=== PATIENT | female | born 1965 | race Caucasian/White ===

== ENCOUNTER 2016-12-07 08:38 | Emergency (ER) | payer OTHER, MEDICAID ==
[~2016-12-07 08:38] MED LIST: ALBU17IN INH; ASPI1TAB PO; BISO5TAB5 PO; CIPR-250 PO; CYCL10TA PO; DITR1TAB PO; LISI10TA4 PO; MAGN400C2 PO; MELO7.5T6 PO; PAXI30TA11 PO; PRAM0.5T4 PO; ROBA750T4 PO; VALI5TAB PO; VICO5TAB16 PO; VITA50003 PO; [UNRECOGNIZED DRUG - REMARK] PO; flexeril PO
[2016-12-07] MEDS ORDERED: PERCOCET 5MG/325MG TAB As Ordered ONE (09:07)
[2016-12-07] MEDS ORDERED: ADACEL/BOOSTRIX VACCINE (DIPHTH/PERTUSS/ACELL/TETANUS)0.5ML SYR (90715) As Ordered ONE (09:08)
--- NOTE | 2016-12-07 09:16 | REP ---
Clinical: Trauma. Comparison: 06/23/2015 . Findings: Age-related atrophy and microvascular ischemic changes are appreciated. The ventricles and sulci are symmetric. Hanks-white differentiation is maintained. There is no evidence for acute intracranial hemorrhage, mass/mass effect, pathology or infarction. No extra-axial fluid collection. Calvarium is intact. Paranasal sinuses and mastoid air cells are clear. There is a moderate left posterior scalp hematoma/contusion. Impression: Left posterior occipital scalp contusion/hematoma. Age related atrophy and microvascular ischemic changes. No acute intracranial hemorrhage, infarction, or mass/mass effect. Signed by Ramsey Marquez MD 12/07/2016 09:08 A
--- NOTE | 2016-12-07 09:36 | REP ---
Clinical: Trauma . Technique: Internal rotation, external rotation, and Y view left shoulder. Findings: Age-related degenerative changes are appreciated including cortical irregularity and subtle spurring involving the acromioclavicular joint as well as the glenohumeral joint with subtle decrease subacromial space. No acute fracture or dislocation. Surrounding soft tissues are unremarkable and no periarticular calcifications are identified. Impression: Normal age-appropriate left shoulder radiographs. Signed by Ramsey Marquez MD 12/07/2016 09:28 A
--- NOTE | 2016-12-07 09:37 | REP ---
Clinical: Trauma. Technique: AP and lateral views of the right humerus. Findings: There is a transverse fracture through the mid the humeral shaft approximately 7 mm of displacement. No subcutaneous emphysema is appreciated. Impression: Closed transverse fracture of the mid humeral shaft. Signed by Ramsey Marquez MD 12/07/2016 09:29 A
--- NOTE | 2016-12-07 09:42 | REP ---
Clinical: Trauma . Technique: AP, lateral, bilateral oblique views of the right elbow. Findings: No acute fracture or dislocation is appreciated. Joint spaces and surrounding soft tissues appear normal. Lateral view demonstrates normal positioning to the anterior and posterior fat pads without evidence for effusion/hemarthrosis. No subcutaneous emphysema or foreign body identified. Impression: Normal right elbow radiographs. Signed by Ramsey Marquez MD 12/07/2016 09:33 A
--- NOTE | 2016-12-07 13:23 | EDDOCDS ---
Nurse's Notes [facility] Name: Alexsandra Farrell Age: 51 yrs Sex: Female : 1965 Arrival Date: 12/07/2016 Time: 08:38 Bed TR7 Private MD: Katerina Mcgee M Diagnosis: Fall (on) (from) other stairs and steps;Contusion of right elbow;Contusion of left shoulder Presentation: 12/07 08:41 Presenting complaint: Patient states: fell down 10 steps after she felt weak and her mk4 legs got woobly and struck back of head on wall. Adult Sepsis Screening: The patient does not have new or worsening altered mentation. Patient's respiratory rate is less than 22. Systolic blood pressure is greater than 100. Patient has a qSOFA score of 0- Negative Sepsis Screen. Suicide/Homicide risk assessment- the patient denies having any suicidal and/or homicidal ideations and does not present with any other emotional, behavioral or mental health complaints. 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 Transition of care: patient was not received from another setting of care. 08:41 Acuity: UZAIR Level 3 mk4 08:41 Method Of Arrival: Ambulance 4 Triage Assessment: 08:50 General: Appears uncomfortable. Pain: Location: posterior aspect of left shoulder. HIV mk4 screening NA for this visit Offered previously. 08:53 Musculoskeletal: Swelling bruising posterior lefr shoulder. 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 albuterol sulfate 90 mcg/actuation Inhl HFAA 1 puff twice a day 2. aspirin 81 mg Oral TbEC 1 tab once daily (Last dose: 12/06/2016) 3. lisinopril 10 mg Oral tab 1 tab once daily 4. magnesium oxide 400 mg Oral tab 400 mg twice a day 5. paroxetine HCl 40 mg Oral tab 1 tab once daily 6. potassium chloride 10 mEq Oral TbER 1 tab once daily (Last dose: 12/06/2016) 7. Trazodone 25 mg Oral 1 tab nightly 8. pramipexole 0.5 mg oral tab 1 tab nightly (Last dose: 12/06/2016) 9. Vitamin B-6 100 mg Oral tab 200 mg every other day 10. aanother b/p med 11. bisoprolol fumarate 5 mg oral tab once daily 12. 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 No barriers to communication noted. - Family history: Not pertinent. - : The pt / caregiver states he / she is not on anticoagulants. Home medication list is obtained from the patient. - Exposure Risk Screening:: None identified. - Tetanus status: unknown. Screenin:57 Screening information is obtained from the patient. 4 11:52 Fall risk: No risks identified. Assistance ADL's: requires no assistance with 4 activities of daily living. Abuse/DV Screen: The patient / caregiver reports he/she is: not in a situation that causes fear, pain or injury. Nutritional screening: No deficits noted. Nutritional screening: No deficits noted. Advance Directives: Currently, there is no health care proxy. There is no active DNR order. There is no living will. There is no Power of Sanitary Napkin Machine Tender. Advance directive information has not previously been placed in an [facility] medical record. Further advance directive information is declined. home support is adequate. Assessment: 08:57 General: Appears distressed, uncomfortable. Pain: Location: left arm and posterior mk4 aspect of left shoulder. Neurological: Level of Consciousness is awake, alert, Oriented to person, place, time, Facial symmetry appears normal, Pupils are PERRLA. Respiratory: Airway is patent Respiratory effort is even, unlabored, Respiratory pattern is regular. Musculoskeletal: Swelling bruising to posterior left shoulder right arm in brace from recent right humerus fx. Injury Description: Laceration sustained to scalp. 09:26 General: Appears uncomfortable, Behavior is cooperative. Pain: Location: left arm and mk4 posterior aspect of left shoulder. 10:53 General: Appears in no apparent distress, comfortable, texting on phone and watching tv mk4 , pain improved with po med posterior scalp lac cleansed with hibiclens awaiting sutureing . 11:41 General: Appears in no apparent distress, comfortable, Behavior is cooperative, mk4 ambulated in abbasi, gait steady denies any dizziness. 11:53 Reassessment: Patient appears in no apparent distress at this time. Patient states mk4 symptoms have improved. General: Appears in no apparent distress. General: Behavior is cooperative, Denies ambulated in abbasi to bathroom gaits steady distal csm intact bilat hands. Vital Signs: 08:53 BP 153 / 108; Pulse 71; Resp 20; Pulse Ox 94% on R/A; Weight 83.91 kg; Height 5 ft. 2 mk4 in. (157.48 cm); Pain 6/10; 11:51 BP 168 / 78; Pulse 75; Resp 18; Temp 97.2; Pulse Ox 96% on R/A; Pain 5/10; mk4 08:53 Body Mass Index 33.84 (83.91 kg, 157.48 cm) mk4 Vitals: 08:53 Log In Time N/A - ambulance arrival. mk4 ED Course: 08:39 Patient visited by Alexsandra Zuleta, Verification Clerk. lbd 08:39 Patient moved to Waiting lbd 08:40 Katerina Mcgee is Private Physician. lbd 08:40 Patient moved to 14 lbd 08:43 Triage Initiated mk4 08:47 Raisa Perry MD is Attending Physician. sd1 08:47 Patient visited by Raisa Perry MD. sd1 08:57 The patient / caregiver is instructed regarding the plan of care and ED course. Patient jw has correct armband on for positive identification. Call light in reach. 08:57 No IV's were initiated during this patient's visit. No procedures done that require 4 assistance. 09:05 [facility] Payment Agreement was scanned into [employer] and attached to record. pm4 09:20 CT Head Without Contrast Returned. EDMS 09:21 Patient visited by Elizabeth Moura RN. mk4 09:51 Patient visited by Elizabeth Moura RN. mk4 09:59 Shoulder, Complete Returned. EDMS 09:59 Humerus Returned. EDMS 09:59 Elbow, Complete Returned. EDMS 10:22 Patient visited by Elizabeth Moura RN. mk4 10:52 Patient visited by Elizabeth Moura RN. mk4 11:28 Patient visited by Elizabeth Moura RN. mk4 11:40 Katerina Mcgee is Referral Physician. sd1 11:[facility] sd[facility] 11:51 Patient moved to [facility] mk4 Administered Medications: 09:25 Drug: Tetanus- Diptheria-Acellular Pertussis 0.5 ml [diphth,pertussis(acel),tetanus 2.5 mk4 Lf unit-8 mcg-5 Lf/0.5mL IM syringe (0.5 mL)] {Decorative Cutting Machine Tender: Ef[employer]. Exp: 01/08/2019. Lot #: [id number]. } Route: IM; Site: left deltoid; 09:26 Drug: oxyCODONE-acetaminophen 2 tabs [oxycodone-acetaminophen 5 mg-325 mg tablet (2 mk4 tabs)] Route: PO; 11:52 Follow up: Response: Pain is decreased mk4 Order Results: Radiology Order: CT Head Without Contrast Test: CT Head Without Contrast REASON FOR EXAMINATION: Trauma; Clinical: Trauma.; ; Comparison: 06/23/2015 .; ; Findings:; Age-related atrophy and microvascular ischemic changes are appreciated. The; ventricles and sulci are symmetric. Hanks-white differentiation is maintained.; There is no evidence for acute intracranial hemorrhage, mass/mass effect,; pathology or infarction. No extra-axial fluid collection. Calvarium is intact.; Paranasal sinuses and mastoid air cells are clear. There is a moderate left; posterior scalp hematoma/contusion.; ; Impression:; Left posterior occipital scalp contusion/hematoma.; Age related atrophy and microvascular ischemic changes.; No acute intracranial hemorrhage, infarction, or mass/mass effect.; ; ; Signed by; Ramsey Marquez MD 12/07/2016 09:08 A; Radiology Order: Shoulder, Complete Test: Shoulder, Complete REASON FOR EXAMINATION: Trauma; Clinical: Trauma .; ; Technique: Internal rotation, external rotation, and Y view left shoulder.; ; Findings:; Age-related degenerative changes are appreciated including cortical irregularity; and subtle spurring involving the acromioclavicular joint as well as the; glenohumeral joint with subtle decrease subacromial space. No acute fracture or; dislocation. Surrounding soft tissues are unremarkable and no periarticular; calcifications are identified.; ; Impression:; Normal age-appropriate left shoulder radiographs.; ; ; Signed by; Ramsey Marquez MD 12/07/2016 09:28 A; Radiology Order: Humerus Test: Humerus REASON FOR EXAMINATION: Trauma; Clinical: Trauma.; ; Technique: AP and lateral views of the right humerus.; ; Findings:; There is a transverse fracture through the mid the humeral shaft approximately 7; mm of displacement. No subcutaneous emphysema is appreciated.; ; Impression:; Closed transverse fracture of the mid humeral shaft.; ; ; Signed by; Ramsey Marquez MD 12/07/2016 09:29 A; Radiology Order: Elbow, Complete Test: Elbow, Complete REASON FOR EXAMINATION: Trauma; Clinical: Trauma .; ; Technique: AP, lateral, bilateral oblique views of the right elbow.; ; Findings:; No acute fracture or dislocation is appreciated. Joint spaces and surrounding; soft tissues appear normal. Lateral view demonstrates normal positioning to the; anterior and posterior fat pads without evidence for effusion/hemarthrosis. No; subcutaneous emphysema or foreign body identified.; ; Impression:; Normal right elbow radiographs.; ; ; Signed by; Ramsey Marquez MD 12/07/2016 09:33 A; Outcome: 11:41 Discharge ordered by Provider. sd1 11:52 Discharge Assessment: Patient awake, alert and oriented x 3. No cognitive and/or mk4 functional deficits noted. Patient verbalized understanding of disposition instructions. Patient awake and alert. Discharge Assessment: patient administered narcotics - no. The following High Risk Discharge criteria are identified: None. Condition: good Condition: stable. No special radiology studies were completed. Property sent home with patient. 13:21 Patient left the ED. dy Signatures: Dispatcher [employer] EDRaisa Sen MD MD sd1 Alexsandra Zuleta, Verification Clerk Unit lbd Bobo Boyd, Elizabeth Trivedi RN, RN RN mk4 Dayday Fuentes, Reg Reg pm4 MTDNaila
--- NOTE | 2016-12-07 13:23 | EDDOCDS ---
Physician Documentation [facility] Name: Alexsandra Farerll Age: 51 yrs Sex: Female : 1965 Arrival Date: 12/07/2016 Time: 08:38 Bed TR7 Private MD: Katerina Mcgee M Disposition: 12/07/16 11:41 Discharged to Home/Self Care. Impression: Fall (on) (from) other stairs and steps, Contusion of right elbow, Contusion of left shoulder. - Condition is Stable. - Discharge Instructions: Contusion, Fall Prevention and Home Safety, Elbow Contusion, Contusion, [id number], Fall Prevention and Home Safety, [id number]. - Prescriptions for Percocet 7.5- 325 mg Oral Tablet - take 1 tablet by ORAL route 4 times per day As needed MDD: 4 tabs; 20 tablet. - Medication Reconciliation, Local Pharmacy Hours form. - Follow up: Katerina Mcgee; When: Call to arrange an appointment. Follow up: Orthopaedics, [facility]; When: Call to arrange an appointment. - Problem is new. - Symptoms have improved. Historical: - Allergies: no known allergies; - Home Meds: 1. albuterol sulfate 90 mcg/actuation Inhl HFAA 1 puff twice a day 2. aspirin 81 mg Oral TbEC 1 tab once daily (Last dose: 12/06/2016) 3. lisinopril 10 mg Oral tab 1 tab once daily 4. magnesium oxide 400 mg Oral tab 400 mg twice a day 5. paroxetine HCl 40 mg Oral tab 1 tab once daily 6. potassium chloride 10 mEq Oral TbER 1 tab once daily (Last dose: 12/06/2016) 7. Trazodone 25 mg Oral 1 tab nightly 8. pramipexole 0.5 mg oral tab 1 tab nightly (Last dose: 12/06/2016) 9. Vitamin B-6 100 mg Oral tab 200 mg every other day 10. aanother b/p med 11. bisoprolol fumarate 5 mg oral tab once daily 12. 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 No barriers to communication noted. - Family history: Not pertinent. - : The pt / caregiver states he / she is not on anticoagulants. Home medication list is obtained from the patient. - Exposure Risk Screening:: None identified. - Tetanus status: unknown. 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 2 in. (157.48 cm); Pain 6/10; 11:51 BP 168 / 78; Pulse 75; Resp 18; Temp 97.2; Pulse Ox 96% on R/A; Pain 5/10; mk4 08:53 Body Mass Index 33.84 (83.91 kg, 157.48 cm) mk4 Procedures: 11:01 Laceration repair:. jo4 Laceration: 11:01 Wound Repair of 1.3cm ( 0.5in ) subcutaneous laceration to scalp. Neuro:Intact distal jo4 to wound.. Vascular:Intact distal to wound. Tendon:Intact distal to wound. Anesthesia: None with None. Wound prep: Wound irrigation with saline by nurse. Skin closed using Staple gun. Patient tolerated well. MDM: 08:50 oxyCODONE-acetaminophen 5 mg-325 mg 2 tabs PO once ordered. sd1 08:50 Wound Care ordered. sd1 08:50 Tetanus- Diptheria-Acellular Pertussis 0.5 ml IM once; Routine booster 10-64yrs, >64 sd1 with child contact [place] [employer] ordered. 08:51 Shoulder, Complete Ordered. EDMS 08:51 CT Head Without Contrast Ordered. EDMS 08:51 Humerus Ordered. EDMS 08:52 Elbow, Complete Ordered. EDMS 09:00 Financial registration complete. pm4 09:05 [facility] Payment Agreement was scanned into [employer] and attached to record. pm4 10:57 [facility]. Nursing Order ordered. sd1 Administered Medications: 09:25 Drug: Tetanus- Diptheria-Acellular Pertussis 0.5 ml [diphth,pertussis(acel),tetanus 2.5 mk4 Lf unit-8 mcg-5 Lf/0.5mL IM syringe (0.5 mL)] {Steam Hoist Operator: [employer]. Exp: 01/08/2019. Lot #: [id number]. } Route: IM; Site: left deltoid; 09:26 Drug: oxyCODONE-acetaminophen 2 tabs [oxycodone-acetaminophen 5 mg-325 mg tablet (2 mk4 tabs)] Route: PO; 11:52 Follow up: Response: Pain is decreased mk4 Signatures: Dispatcher [employer]Host EDRaisa Sen MD MD sd1 Bobo Boyd, RN RN dy Elizabeth Moura RN RN mk4 Tamela Powell DO DO jo4 Dayday Fuentes, Reg Reg pm4 The chart was reviewed and I authenticate all verbal orders and agree with the evaluation and treatment provided.Attachments: 09:05 [facility] Payment Agreement pm4 MTDD
--- NOTE | 2016-12-09 14:22 | EDDOCDS ---
Physician Documentation [facility] Name: Alexsandra Farrell Age: 51 yrs Sex: Female : 1965 Arrival Date: 12/07/2016 Time: 08:38 Bed TR7 Private MD: Katerina Mcgee M Disposition: 12/07/16 11:41 Discharged to Home/Self Care. Impression: Fall (on) (from) other stairs and steps, Contusion of right elbow, Contusion of left shoulder. - Condition is Stable. - Discharge Instructions: Contusion, Fall Prevention and Home Safety, Elbow Contusion, Contusion, [id number], Fall Prevention and Home Safety, [id number]. - Prescriptions for Percocet 7.5- 325 mg Oral Tablet - take 1 tablet by ORAL route 4 times per day As needed MDD: 4 tabs; 20 tablet. - Medication Reconciliation, Local Pharmacy Hours form. - Follow up: Katerina Mcgee; When: Call to arrange an appointment. Follow up: Orthopaedics, [facility]; When: Call to arrange an appointment. - Problem is new. - Symptoms have improved. Historical: - Allergies: no known allergies; - Home Meds: 1. albuterol sulfate 90 mcg/actuation Inhl HFAA 1 puff twice a day 2. aspirin 81 mg Oral TbEC 1 tab once daily (Last dose: 12/06/2016) 3. lisinopril 10 mg Oral tab 1 tab once daily 4. magnesium oxide 400 mg Oral tab 400 mg twice a day 5. paroxetine HCl 40 mg Oral tab 1 tab once daily 6. potassium chloride 10 mEq Oral TbER 1 tab once daily (Last dose: 12/06/2016) 7. Trazodone 25 mg Oral 1 tab nightly 8. pramipexole 0.5 mg oral tab 1 tab nightly (Last dose: 12/06/2016) 9. Vitamin B-6 100 mg Oral tab 200 mg every other day 10. aanother b/p med 11. bisoprolol fumarate 5 mg oral tab once daily 12. 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 No barriers to communication noted. - Family history: Not pertinent. - : The pt / caregiver states he / she is not on anticoagulants. Home medication list is obtained from the patient. - Exposure Risk Screening:: None identified. - Tetanus status: unknown. 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 2 in. (157.48 cm); Pain 6/10; 11:51 BP 168 / 78; Pulse 75; Resp 18; Temp 97.2; Pulse Ox 96% on R/A; Pain 5/10; mk4 08:53 Body Mass Index 33.84 (83.91 kg, 157.48 cm) mk4 Procedures: 11:01 Laceration repair:. jo4 Laceration: 11:01 Wound Repair of 1.3cm ( 0.5in ) subcutaneous laceration to scalp. Neuro:Intact distal jo4 to wound.. Vascular:Intact distal to wound. Tendon:Intact distal to wound. Anesthesia: None with None. Wound prep: Wound irrigation with saline by nurse. Skin closed using Staple gun. Patient tolerated well. MDM: 08:50 oxyCODONE-acetaminophen 5 mg-325 mg 2 tabs PO once ordered. sd1 08:50 Wound Care ordered. sd1 08:50 Tetanus- Diptheria-Acellular Pertussis 0.5 ml IM once; Routine booster 10-64yrs, >64 sd1 with child contact [place] [employer] ordered. 08:51 Shoulder, Complete Ordered. EDMS 08:51 CT Head Without Contrast Ordered. EDMS 08:51 Humerus Ordered. EDMS 08:52 Elbow, Complete Ordered. EDMS 09:00 Financial registration complete. pm4 09:05 [facility] Payment Agreement was scanned into [employer] and attached to record. pm4 10:57 [facility]. Nursing Order ordered. sd1 14:53 T-Sheet-- Draft Copy was scanned into [employer] and attached to record. gb 14:54 Radiology Report was scanned into [employer] and attached to record. gb Administered Medications: 09:25 Drug: Tetanus- Diptheria-Acellular Pertussis 0.5 ml [diphth,pertussis(acel),tetanus 2.5 mk4 Lf unit-8 mcg-5 Lf/0.5mL IM syringe (0.5 mL)] {Professor Sculpture: Yonghong Tech. Exp: 01/08/2019. Lot #: [id number]. } Route: IM; Site: left deltoid; 09:26 Drug: oxyCODONE-acetaminophen 2 tabs [oxycodone-acetaminophen 5 mg-325 mg tablet (2 mk4 tabs)] Route: PO; 11:52 Follow up: Response: Pain is decreased mk4 Signatures: Dispatcher [employer] EDRaisa Sen MD MD sd1 Tara Collins, Reg Reg gb Bobo Boyd, CIARRA LAFLEUR dy Elizabeth Moura RN RN mk4 Tamela Powell DO DO jo4 Dayday Fuentes, Reg Reg pm4 The chart was reviewed and I authenticate all verbal orders and agree with the evaluation and treatment provided.Attachments: 09:05 [facility] Payment Agreement pm4 14:53 T-Sheet-- Draft Copy Chart Complete MTDD
--- NOTE | 2016-12-09 14:22 | EDDOCDS ---
Nurse's Notes [facility] Name: Alexsandra Farrell Age: 51 yrs Sex: Female : 1965 Arrival Date: 12/07/2016 Time: 08:38 Bed TR7 Private MD: Katerina Mcgee M Diagnosis: Fall (on) (from) other stairs and steps;Contusion of right elbow;Contusion of left shoulder Presentation: 12/07 08:41 Presenting complaint: Patient states: fell down 10 steps after she felt weak and her mk4 legs got woobly and struck back of head on wall. Adult Sepsis Screening: The patient does not have new or worsening altered mentation. Patient's respiratory rate is less than 22. Systolic blood pressure is greater than 100. Patient has a qSOFA score of 0- Negative Sepsis Screen. Suicide/Homicide risk assessment- the patient denies having any suicidal and/or homicidal ideations and does not present with any other emotional, behavioral or mental health complaints. Status: Patient is not a vending route servicer or dependent. Transition of care: patient was not received from another setting of care. 08:41 Acuity: UZAIR Level 3 mk4 08:41 Method Of Arrival: Ambulance 4 Triage Assessment: 08:50 General: Appears uncomfortable. Pain: Location: posterior aspect of left shoulder. HIV mk4 screening NA for this visit Offered previously. 08:53 Musculoskeletal: Swelling bruising posterior lefr shoulder. 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 albuterol sulfate 90 mcg/actuation Inhl HFAA 1 puff twice a day 2. aspirin 81 mg Oral TbEC 1 tab once daily (Last dose: 12/06/2016) 3. lisinopril 10 mg Oral tab 1 tab once daily 4. magnesium oxide 400 mg Oral tab 400 mg twice a day 5. paroxetine HCl 40 mg Oral tab 1 tab once daily 6. potassium chloride 10 mEq Oral TbER 1 tab once daily (Last dose: 12/06/2016) 7. Trazodone 25 mg Oral 1 tab nightly 8. pramipexole 0.5 mg oral tab 1 tab nightly (Last dose: 12/06/2016) 9. Vitamin B-6 100 mg Oral tab 200 mg every other day 10. aanother b/p med 11. bisoprolol fumarate 5 mg oral tab once daily 12. 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 No barriers to communication noted. - Family history: Not pertinent. - : The pt / caregiver states he / she is not on anticoagulants. Home medication list is obtained from the patient. - Exposure Risk Screening:: None identified. - Tetanus status: unknown. Screenin:57 Screening information is obtained from the patient. 4 11:52 Fall risk: No risks identified. Assistance ADL's: requires no assistance with 4 activities of daily living. Abuse/DV Screen: The patient / caregiver reports he/she is: not in a situation that causes fear, pain or injury. Nutritional screening: No deficits noted. Nutritional screening: No deficits noted. Advance Directives: Currently, there is no health care proxy. There is no active DNR order. There is no living will. There is no Power of Founding Partner. Advance directive information has not previously been placed in an [facility] medical record. Further advance directive information is declined. home support is adequate. Assessment: 08:57 General: Appears distressed, uncomfortable. Pain: Location: left arm and posterior mk4 aspect of left shoulder. Neurological: Level of Consciousness is awake, alert, Oriented to person, place, time, Facial symmetry appears normal, Pupils are PERRLA. Respiratory: Airway is patent Respiratory effort is even, unlabored, Respiratory pattern is regular. Musculoskeletal: Swelling bruising to posterior left shoulder right arm in brace from recent right humerus fx. Injury Description: Laceration sustained to scalp. 09:26 General: Appears uncomfortable, Behavior is cooperative. Pain: Location: left arm and mk4 posterior aspect of left shoulder. 10:53 General: Appears in no apparent distress, comfortable, texting on phone and watching tv mk4 , pain improved with po med posterior scalp lac cleansed with hibiclens awaiting sutureing . 11:41 General: Appears in no apparent distress, comfortable, Behavior is cooperative, mk4 ambulated in abbasi, gait steady denies any dizziness. 11:53 Reassessment: Patient appears in no apparent distress at this time. Patient states mk4 symptoms have improved. General: Appears in no apparent distress. General: Behavior is cooperative, Denies ambulated in abbasi to bathroom gaits steady distal csm intact bilat hands. Vital Signs: 08:53 BP 153 / 108; Pulse 71; Resp 20; Pulse Ox 94% on R/A; Weight 83.91 kg; Height 5 ft. 2 mk4 in. (157.48 cm); Pain 6/10; 11:51 BP 168 / 78; Pulse 75; Resp 18; Temp 97.2; Pulse Ox 96% on R/A; Pain 5/10; mk4 08:53 Body Mass Index 33.84 (83.91 kg, 157.48 cm) mk4 Vitals: 08:53 Log In Time N/A - ambulance arrival. mk4 ED Course: 08:39 Patient visited by Alexsandra Zuleta, Advanced Solutions Architect. lbd 08:39 Patient moved to Waiting lbd 08:40 Katerina Mcgee is Private Physician. lbd 08:40 Patient moved to 14 lbd 08:43 Triage Initiated mk4 08:47 Raisa Perry MD is Attending Physician. sd1 08:47 Patient visited by Raisa Perry MD. sd1 08:57 The patient / caregiver is instructed regarding the plan of care and ED course. Patient jw has correct armband on for positive identification. Call light in reach. 08:57 No IV's were initiated during this patient's visit. No procedures done that require 4 assistance. 09:05 [facility] [place] Agreement was scanned into [employer] and attached to record. pm4 09:20 CT Head Without Contrast Returned. EDMS 09:21 Patient visited by Elizabeth Moura RN. mk4 09:51 Patient visited by Elizabeth Moura RN. mk4 09:59 Shoulder, Complete Returned. EDMS 09:59 Humerus Returned. EDMS 09:59 Elbow, Complete Returned. EDMS 10:22 Patient visited by Elizabeth Moura RN. mk4 10:52 Patient visited by Elizabeth Moura RN. mk4 11:28 Patient visited by Elizabeth Moura RN. mk4 11:40 Katerina Mcgee is Referral Physician. sd1 11:[facility]. sd1 11:51 Patient moved to TR7 mk4 14:53 T-Sheet-- Draft Copy was scanned into [employer] and attached to record. gb 14:54 Radiology Report was scanned into [employer] and attached to record. gb Administered Medications: 09:25 Drug: Tetanus- Diptheria-Acellular Pertussis 0.5 ml [diphth,pertussis(acel),tetanus 2.5 mk4 Lf unit-8 mcg-5 Lf/0.5mL IM syringe (0.5 mL)] {Supervisor Mill: [employer]. Exp: 01/08/2019. Lot #: [id number]. } Route: IM; Site: left deltoid; 09:26 Drug: oxyCODONE-acetaminophen 2 tabs [oxycodone-acetaminophen 5 mg-325 mg tablet (2 mk4 tabs)] Route: PO; 11:52 Follow up: Response: Pain is decreased 4 Order Results: Radiology Order: CT Head Without Contrast Test: CT Head Without Contrast REASON FOR EXAMINATION: Trauma; Clinical: Trauma.; ; Comparison: 06/23/2015 .; ; Findings:; Age-related atrophy and microvascular ischemic changes are appreciated. The; ventricles and sulci are symmetric. Hanks-white differentiation is maintained.; There is no evidence for acute intracranial hemorrhage, mass/mass effect,; pathology or infarction. No extra-axial fluid collection. Calvarium is intact.; Paranasal sinuses and mastoid air cells are clear. There is a moderate left; posterior scalp hematoma/contusion.; ; Impression:; Left posterior occipital scalp contusion/hematoma.; Age related atrophy and microvascular ischemic changes.; No acute intracranial hemorrhage, infarction, or mass/mass effect.; ; ; Signed by; Ramsey Marquez MD 12/07/2016 09:08 A; Radiology Order: Shoulder, Complete Test: Shoulder, Complete REASON FOR EXAMINATION: Trauma; Clinical: Trauma .; ; Technique: Internal rotation, external rotation, and Y view left shoulder.; ; Findings:; Age-related degenerative changes are appreciated including cortical irregularity; and subtle spurring involving the acromioclavicular joint as well as the; glenohumeral joint with subtle decrease subacromial space. No acute fracture or; dislocation. Surrounding soft tissues are unremarkable and no periarticular; calcifications are identified.; ; Impression:; Normal age-appropriate left shoulder radiographs.; ; ; Signed by; Ramsey Marquez MD 12/07/2016 09:28 A; Radiology Order: Humerus Test: Humerus REASON FOR EXAMINATION: Trauma; Clinical: Trauma.; ; Technique: AP and lateral views of the right humerus.; ; Findings:; There is a transverse fracture through the mid the humeral shaft approximately 7; mm of displacement. No subcutaneous emphysema is appreciated.; ; Impression:; Closed transverse fracture of the mid humeral shaft.; ; ; Signed by; Ramsey Marquez MD 12/07/2016 09:29 A; Radiology Order: Elbow, Complete Test: Elbow, Complete REASON FOR EXAMINATION: Trauma; Clinical: Trauma .; ; Technique: AP, lateral, bilateral oblique views of the right elbow.; ; Findings:; No acute fracture or dislocation is appreciated. Joint spaces and surrounding; soft tissues appear normal. Lateral view demonstrates normal positioning to the; anterior and posterior fat pads without evidence for effusion/hemarthrosis. No; subcutaneous emphysema or foreign body identified.; ; Impression:; Normal right elbow radiographs.; ; ; Signed by; Ramsey Marquez MD 12/07/2016 09:33 A; Outcome: 11:41 Discharge ordered by Provider. sd1 11:52 Discharge Assessment: Patient awake, alert and oriented x 3. No cognitive and/or mk4 functional deficits noted. Patient verbalized understanding of disposition instructions. Patient awake and alert. Discharge Assessment: patient administered narcotics - no. The following High Risk Discharge criteria are identified: None. Condition: good Condition: stable. No special radiology studies were completed. Property sent home with patient. 13:21 Patient left the ED. dy Signatures: Dispatcher [employer] EDMS Raisa Perry MD MD sd1 Alexsandra Zuleta, Advanced Solutions Architect Unit lbd Tara Collins, Reg Reg gb Bobo Boyd RN RN dy Elizabeth Moura RN RN mk4 Dayday Fuentes, Reg Reg pm4 Chart Complete MTDD
--- NOTE | 2016-12-09 14:22 | EDDOCDS ---
Physician Documentation [facility] Name: Alexsandra Farrell Age: 51 yrs Sex: Female : 1965 Arrival Date: 12/07/2016 Time: 08:38 Bed TR7 Private MD: Katerina Mcgee M Disposition: 12/07/16 11:41 Discharged to Home/Self Care. Impression: Fall (on) (from) other stairs and steps, Contusion of right elbow, Contusion of left shoulder. - Condition is Stable. - Discharge Instructions: Contusion, Fall Prevention and Home Safety, Elbow Contusion, Contusion, [id number], Fall Prevention and Home Safety, [id number]. - Prescriptions for Percocet 7.5- 325 mg Oral Tablet - take 1 tablet by ORAL route 4 times per day As needed MDD: 4 tabs; 20 tablet. - Medication Reconciliation, Local Pharmacy Hours form. - Follow up: Katerina Mcgee; When: Call to arrange an appointment. Follow up: Orthopaedics, [facility]; When: Call to arrange an appointment. - Problem is new. - Symptoms have improved. Historical: - Allergies: no known allergies; - Home Meds: 1. albuterol sulfate 90 mcg/actuation Inhl HFAA 1 puff twice a day 2. aspirin 81 mg Oral TbEC 1 tab once daily (Last dose: 12/06/2016) 3. lisinopril 10 mg Oral tab 1 tab once daily 4. magnesium oxide 400 mg Oral tab 400 mg twice a day 5. paroxetine HCl 40 mg Oral tab 1 tab once daily 6. potassium chloride 10 mEq Oral TbER 1 tab once daily (Last dose: 12/06/2016) 7. Trazodone 25 mg Oral 1 tab nightly 8. pramipexole 0.5 mg oral tab 1 tab nightly (Last dose: 12/06/2016) 9. Vitamin B-6 100 mg Oral tab 200 mg every other day 10. aanother b/p med 11. bisoprolol fumarate 5 mg oral tab once daily 12. 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 No barriers to communication noted. - Family history: Not pertinent. - : The pt / caregiver states he / she is not on anticoagulants. Home medication list is obtained from the patient. - Exposure Risk Screening:: None identified. - Tetanus status: unknown. 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 2 in. (157.48 cm); Pain 6/10; 11:51 BP 168 / 78; Pulse 75; Resp 18; Temp 97.2; Pulse Ox 96% on R/A; Pain 5/10; mk4 08:53 Body Mass Index 33.84 (83.91 kg, 157.48 cm) mk4 Procedures: 11:01 Laceration repair:. jo4 Laceration: 11:01 Wound Repair of 1.3cm ( 0.5in ) subcutaneous laceration to scalp. Neuro:Intact distal jo4 to wound.. Vascular:Intact distal to wound. Tendon:Intact distal to wound. Anesthesia: None with None. Wound prep: Wound irrigation with saline by nurse. Skin closed using Staple gun. Patient tolerated well. MDM: 08:50 oxyCODONE-acetaminophen 5 mg-325 mg 2 tabs PO once ordered. sd1 08:50 Wound Care ordered. sd1 08:50 Tetanus- Diptheria-Acellular Pertussis 0.5 ml IM once; Routine booster 10-64yrs, >64 sd1 with child contact Charlotte Omnicell ordered. 08:51 Shoulder, Complete Ordered. EDMS 08:51 CT Head Without Contrast Ordered. EDMS 08:51 Humerus Ordered. EDMS 08:52 Elbow, Complete Ordered. EDMS 09:00 Financial registration complete. pm4 09:05 [facility] [place] Payment Agreement was scanned into [employer]) and attached to record. pm4 10:57 [facility] [place] ordered. sd1 14:53 T-Sheet-- Draft Copy was scanned into [employer]) and attached to record. gb 14:54 Radiology Report was scanned into [employer]) and attached to record. gb Administered Medications: 09:25 Drug: Tetanus- Diptheria-Acellular Pertussis 0.5 ml [diphth,pertussis(acel),tetanus 2.5 mk4 Lf unit-8 mcg-5 Lf/0.5mL IM syringe (0.5 mL)] {Manager Division: [employer]. Exp: 01/08/2019. Lot #: [id number]. } Route: IM; Site: left deltoid; 09:26 Drug: oxyCODONE-acetaminophen 2 tabs [oxycodone-acetaminophen 5 mg-325 mg tablet (2 mk4 tabs)] Route: PO; 11:52 Follow up: Response: Pain is decreased mk4 Signatures: Dispatcher [employer] EDRaisa Sen MD MD sd1 Tara Collins, Reg Reg gb Bobo Boyd, CIARRA LAFLEUR dy Elizabeth Moura RN RN mk4 Tamela Powell DO DO jo4 Dayday Fuentes, Reg Reg pm4 The chart was reviewed and I authenticate all verbal orders and agree with the evaluation and treatment provided.Attachments: 09:05 [facility] Payment Agreement pm4 14:53 T-Sheet-- Draft Copy Chart Complete MTDD
== END 2016-12-07 13:21 | disposition home or self-care (01) ==
LOC: M ED 08:38
DX: S01.01XA Laceration without foreign body of scalp, initial encounter (principal); S40.012A Contusion of left shoulder, initial encounter; S40.011A Contusion of right shoulder, initial encounter; W10.9XXA Fall (on) (from) unspecified stairs and steps, initial encounter; Y92.019 Unspecified place in single-family (private) house as the place of occurrence of the external cause; Y93.01 Activity, walking, marching and hiking; Y99.8 Other external cause status; F41.9 Anxiety disorder, unspecified; J45.909 Unspecified asthma, uncomplicated; B18.2 Chronic viral hepatitis C; I10 Essential (primary) hypertension; F17.210 Nicotine dependence, cigarettes, uncomplicated; Z79.51 Long term (current) use of inhaled steroids; Z79.82 Long term (current) use of aspirin; Z79.899 Other long term (current) drug therapy

== ENCOUNTER 2016-12-29 11:02 | Emergency (ER) | payer MEDICAID, OTHER ==
--- NOTE | 2016-12-29 11:52 | EDDOCDS ---
Physician Documentation [facility] Name: Alexsandra Farrell Age: 51 yrs Sex: Female : 1965 Arrival Date: 12/29/2016 Time: 11:02 Bed Triage 1 Private MD: Katerina Mcgee M Disposition: 12/29/16 11:44 Discharged to Home/Self Care. Impression: Encounter for removal of sutures. - Condition is Stable. - Discharge Instructions: Suture Removal, Care After. - Medication Reconciliation, Local Pharmacy Hours form. - Follow up: Katerina Mcgee; When: Call to arrange an appointment; Reason: Further diagnostic work-up, Recheck today's complaints, Continuance of care. - Problem is an ongoing problem. - Symptoms are resolved. Historical: - Allergies: no known allergies; - Home Meds: 1. bisoprolol fumarate 10 mg oral tab 1 tab once daily 2. albuterol sulfate 90 mcg/actuation Inhl HFAA 1 puff twice a day 3. aspirin 81 mg Oral TbEC 1 tab once daily 4. bisoprolol fumarate 5 mg oral tab once daily 5. lisinopril 10 mg Oral tab 1 tab once daily 6. magnesium oxide 400 mg Oral tab 400 mg twice a day 7. oxycodone-acetaminophen 5-325 mg Oral tab every 6 hours 8. paroxetine HCl 40 mg Oral tab 1 tab once daily 9. potassium chloride 10 mEq Oral TbER 1 tab once daily 10. pramipexole 0.5 mg oral tab 1 tab nightly 11. Trazodone 25 mg Oral 1 tab nightly 12. 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 No barriers to communication noted, The patient speaks fluent [place] Citizen, Speaks appropriately for age. - Family history: Not pertinent. - : The pt / caregiver states he / she is not on anticoagulants. Home medication list is obtained from the patient. - Exposure Risk Screening:: None identified. 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 2 in. (157.48 cm) (R); Pain 7/10; 11:49 Resp 18; Pain 3/10; jf3 11:04 Body Mass Index 33.84 (83.91 kg, 157.48 cm) jrd Procedures: 11:43 Suture/Staple removal: Removed 2 karon, from left occipital area, site appears well btw healed, Patient tolerated well. Signatures: Reema Sousa,RN RN jo3 Madhu Doherty PA PA btw Suman Garcia,RN RN jf3 MTDD
--- NOTE | 2016-12-29 11:52 | EDDOCDS ---
Nurse's Notes [facility] Name: Alexsandra Farrell Age: 51 yrs Sex: Female : 1965 Arrival Date: 12/29/2016 Time: 11:02 Bed Triage 1 Private MD: Katerina Mcgee M Diagnosis: Encounter for removal of sutures Presentation: 12/29 11:07 Presenting complaint: Patient states: Has two karon in head from fall 12/06. Here to jo3 have them removed. Adult Sepsis Screening: The patient does not have new or worsening altered mentation. Patient's respiratory rate is less than 22. Systolic blood pressure is greater than 100. Patient has a qSOFA score of 0- Negative Sepsis Screen. Suicide/Homicide risk assessment- the patient denies having any suicidal and/or homicidal ideations and does not present with any other emotional, behavioral or mental health complaints. 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 Transition of care: patient was not received from another setting of care. 11:07 Acuity: UZAIR Level 5 jo3 11:07 Method Of Arrival: Walkin/Carried/Asstd jo3 Triage Assessment: 11:11 General: Appears in no apparent distress, comfortable, Behavior is appropriate for age, jo3 cooperative. HIV screening NA for this visit Offered previously. Neurological: Level of Consciousness is awake, alert, Oriented to person, place, time. Respiratory: Airway is patent Respiratory effort is even, unlabored. Derm: Skin is pink, warm & dry. 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 bisoprolol fumarate 10 mg oral tab 1 tab once daily 2. albuterol sulfate 90 mcg/actuation Inhl HFAA 1 puff twice a day 3. aspirin 81 mg Oral TbEC 1 tab once daily 4. bisoprolol fumarate 5 mg oral tab once daily 5. lisinopril 10 mg Oral tab 1 tab once daily 6. magnesium oxide 400 mg Oral tab 400 mg twice a day 7. oxycodone-acetaminophen 5-325 mg Oral tab every 6 hours 8. paroxetine HCl 40 mg Oral tab 1 tab once daily 9. potassium chloride 10 mEq Oral TbER 1 tab once daily 10. pramipexole 0.5 mg oral tab 1 tab nightly 11. Trazodone 25 mg Oral 1 tab nightly 12. 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 No barriers to communication noted, The patient speaks fluent Yoruba, Speaks appropriately for age. - Family history: Not pertinent. - : The pt / caregiver states he / she is not on anticoagulants. Home medication list is obtained from the patient. - Exposure Risk Screening:: None identified. Screenin:49 Screening information is obtained from the patient. Fall risk: No risks identified. jf3 Assistance ADL's: requires no assistance with activities of daily living. Abuse/DV Screen: The patient / caregiver reports he/she is: not in a situation that causes fear, pain or injury. Nutritional screening: No deficits noted. Advance Directives: There is no active DNR order. home support is adequate. Assessment: 11:49 General: Appears in no apparent distress, comfortable, Behavior is cooperative. Pain: jf3 Location: HEAD Pain currently is 3 out of 10 on a pain scale. Neurological: Level of Consciousness is awake, alert, Oriented to person, place, time. Cardiovascular: Capillary refill < 3 seconds Chest pain is denied. Respiratory: Airway is patent Respiratory effort is even, unlabored, Respiratory pattern is regular, symmetrical, Denies shortness of breath. Derm: Skin is normal. Vital Signs: 11:04 BP 159 / 92 RA Sitting (auto/reg); Pulse 87; Resp 18; Temp 98.9(O); Pulse Ox 98% on jrd R/A; Weight 83.91 kg (R); Height 5 ft. 2 in. (157.48 cm) (R); Pain 7/10; 11:49 Resp 18; Pain 3/10; jf3 11:04 Body Mass Index 33.84 (83.91 kg, 157.48 cm) [facility] Vitals: 11:04 Log In Time: December 29, 2016 at 10:55. [facility] ED Course: 11:03 Patient visited by Mannie Mathew PCA. d 11:03 Patient moved to Waiting [facility] 11:04 Katerina Mcgee is Private Physician. jrd 11:05 Patient visited by Mannie Mathew PCA. jrd 11:05 Patient moved to Pre RCE jrd 11:09 Triage Initiated jo3 11:15 Patient moved to Triage 1 jo3 11:36 Madhu Doherty PA is PHCP. btw 11:36 Javy Hawk MD is Attending Physician. btw 11:36 Patient visited by Madhu Doherty PA. btw 11:43 Katerina Mcgee is Referral Physician. btw 11:49 The patient / caregiver is instructed regarding the plan of care and ED course. jf3 11:49 No IV's were initiated during this patient's visit. No procedures done that require jf3 assistance. Order Results: There are currently no results for this order. Outcome: 11:44 Discharge ordered by Provider. btw 11:51 Discharge Assessment: Patient awake, alert and oriented x 3. No cognitive and/or jf3 functional deficits noted. Patient verbalized understanding of disposition instructions. patient administered narcotics - no. The following High Risk Discharge criteria are identified: None. Discharged to home ambulatory. Condition: good. Discharge instructions given to patient, Instructed on discharge instructions, follow up and referral plans. Demonstrated understanding of instructions, Pt was receptive of discharge instructions/ teaching. No special radiology studies were completed. Property :Personal belongings accompany Pt. 11:51 Patient left the ED. jf3 Signatures: Reema Sousa RN RN jo3 Madhu Doherty PA PA btw Mannie Mathew PCA INSURANCE AGENT jrd Suman Garcia RN RN jf3 MTDD
--- NOTE | 2016-12-31 12:52 | EDDOCDS ---
Nurse's Notes [facility] Name: Alexsandra Farrell Age: 51 yrs Sex: Female : 1965 Arrival Date: 12/29/2016 Time: 11:02 Bed Triage 1 Private MD: Katerina Mcgee M Diagnosis: Encounter for removal of sutures Presentation: 12/29 11:07 Presenting complaint: Patient states: Has two karon in head from fall 12/06. Here to jo3 have them removed. Adult Sepsis Screening: The patient does not have new or worsening altered mentation. Patient's respiratory rate is less than 22. Systolic blood pressure is greater than 100. Patient has a qSOFA score of 0- Negative Sepsis Screen. Suicide/Homicide risk assessment- the patient denies having any suicidal and/or homicidal ideations and does not present with any other emotional, behavioral or mental health complaints. 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 Transition of care: patient was not received from another setting of care. 11:07 Acuity: UZAIR Level 5 jo3 11:07 Method Of Arrival: Walkin/Carried/Asstd jo3 Triage Assessment: 11:11 General: Appears in no apparent distress, comfortable, Behavior is appropriate for age, jo3 cooperative. HIV screening NA for this visit Offered previously. Neurological: Level of Consciousness is awake, alert, Oriented to person, place, time. Respiratory: Airway is patent Respiratory effort is even, unlabored. Derm: Skin is pink, warm & dry. 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 bisoprolol fumarate 10 mg oral tab 1 tab once daily 2. albuterol sulfate 90 mcg/actuation Inhl HFAA 1 puff twice a day 3. aspirin 81 mg Oral TbEC 1 tab once daily 4. bisoprolol fumarate 5 mg oral tab once daily 5. lisinopril 10 mg Oral tab 1 tab once daily 6. magnesium oxide 400 mg Oral tab 400 mg twice a day 7. oxycodone-acetaminophen 5-325 mg Oral tab every 6 hours 8. paroxetine HCl 40 mg Oral tab 1 tab once daily 9. potassium chloride 10 mEq Oral TbER 1 tab once daily 10. pramipexole 0.5 mg oral tab 1 tab nightly 11. Trazodone 25 mg Oral 1 tab nightly 12. 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 No barriers to communication noted, The patient speaks fluent Kyrgyz, Speaks appropriately for age. - Family history: Not pertinent. - : The pt / caregiver states he / she is not on anticoagulants. Home medication list is obtained from the patient. - Exposure Risk Screening:: None identified. Screenin:49 Screening information is obtained from the patient. Fall risk: No risks identified. jf3 Assistance ADL's: requires no assistance with activities of daily living. Abuse/DV Screen: The patient / caregiver reports he/she is: not in a situation that causes fear, pain or injury. Nutritional screening: No deficits noted. Advance Directives: There is no active DNR order. home support is adequate. Assessment: 11:49 General: Appears in no apparent distress, comfortable, Behavior is cooperative. Pain: jf3 Location: HEAD Pain currently is 3 out of 10 on a pain scale. Neurological: Level of Consciousness is awake, alert, Oriented to person, place, time. Cardiovascular: Capillary refill < 3 seconds Chest pain is denied. Respiratory: Airway is patent Respiratory effort is even, unlabored, Respiratory pattern is regular, symmetrical, Denies shortness of breath. Derm: Skin is normal. Vital Signs: 11:04 BP 159 / 92 RA Sitting (auto/reg); Pulse 87; Resp 18; Temp 98.9(O); Pulse Ox 98% on jrd R/A; Weight 83.91 kg (R); Height 5 ft. 2 in. (157.48 cm) (R); Pain 7/10; 11:49 Resp 18; Pain 3/10; jf3 11:04 Body Mass Index 33.84 (83.91 kg, 157.48 cm) [facility] Vitals: 11:04 Log In Time: December 29, 2016 at 10:55. [facility] ED Course: 11:03 Patient visited by Mannie Mathew PCA. d 11:03 Patient moved to Waiting [facility] 11:04 Katerina Mcgee is Private Physician. jrd 11:05 Patient visited by Mannie Mathew PCA. jrd 11:05 Patient moved to Pre RCE jrd 11:09 Triage Initiated jo3 11:15 Patient moved to Triage 1 jo3 11:36 Madhu Doherty PA is PHCP. btw 11:36 Javy Hawk MD is Attending Physician. btw 11:36 Patient visited by Madhu Doherty PA. btw 11:43 Katerina Mcgee is Referral Physician. btw 11:49 The patient / caregiver is instructed regarding the plan of care and ED course. jf3 11:49 No IV's were initiated during this patient's visit. No procedures done that require jf3 assistance. 12:04 [facility] Payment Agreement was scanned into [employer] and attached to record. 02/ 12:55 T-Sheet-- Draft Copy was scanned into [employer] and attached to record. gb Order Results: There are currently no results for this order. Outcome: 02 11:44 Discharge ordered by Provider. btw 11:51 Discharge Assessment: Patient awake, alert and oriented x 3. No cognitive and/or jf3 functional deficits noted. Patient verbalized understanding of disposition instructions. patient administered narcotics - no. The following High Risk Discharge criteria are identified: None. Discharged to home ambulatory. Condition: good. Discharge instructions given to patient, Instructed on discharge instructions, follow up and referral plans. Demonstrated understanding of instructions, Pt was receptive of discharge instructions/ teaching. No special radiology studies were completed. Property :Personal belongings accompany Pt. 11:51 Patient left the ED. jf3 Signatures: Tara Collins, Reg Reg gb Justin Rodriguez, Reg Reg lg Reema Sousa RN RN jo3 Wolfenden, Brandon, PA PA btw Mannie Mathew PCA PCA jrd Farman, Justin,CIARRA RN kristin Chart Complete MTDD
--- NOTE | 2016-12-31 12:52 | EDDOCDS ---
Physician Documentation [facility] Name: Alexsandra Farrell Age: 51 yrs Sex: Female : 1965 Arrival Date: 12/29/2016 Time: 11:02 Bed Triage 1 Private MD: Katerina Mcgee M Disposition: 12/29/16 11:44 Discharged to Home/Self Care. Impression: Encounter for removal of sutures. - Condition is Stable. - Discharge Instructions: Suture Removal, Care After. - Medication Reconciliation, Local Pharmacy Hours form. - Follow up: Katerina Mcgee; When: Call to arrange an appointment; Reason: Further diagnostic work-up, Recheck today's complaints, Continuance of care. - Problem is an ongoing problem. - Symptoms are resolved. Historical: - Allergies: no known allergies; - Home Meds: 1. bisoprolol fumarate 10 mg oral tab 1 tab once daily 2. albuterol sulfate 90 mcg/actuation Inhl HFAA 1 puff twice a day 3. aspirin 81 mg Oral TbEC 1 tab once daily 4. bisoprolol fumarate 5 mg oral tab once daily 5. lisinopril 10 mg Oral tab 1 tab once daily 6. magnesium oxide 400 mg Oral tab 400 mg twice a day 7. oxycodone-acetaminophen 5-325 mg Oral tab every 6 hours 8. paroxetine HCl 40 mg Oral tab 1 tab once daily 9. potassium chloride 10 mEq Oral TbER 1 tab once daily 10. pramipexole 0.5 mg oral tab 1 tab nightly 11. Trazodone 25 mg Oral 1 tab nightly 12. 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 No barriers to communication noted, The patient speaks fluent Niuean, Speaks appropriately for age. - Family history: Not pertinent. - : The pt / caregiver states he / she is not on anticoagulants. Home medication list is obtained from the patient. - Exposure Risk Screening:: None identified. 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 2 in. (157.48 cm) (R); Pain 7/10; 11:49 Resp 18; Pain 3/10; jf3 11:04 Body Mass Index 33.84 (83.91 kg, 157.48 cm) jrd Procedures: 11:43 Suture/Staple removal: Removed 2 karon, from left occipital area, site appears well btw healed, Patient tolerated well. MDM: 12: [facility] Payment Agreement was scanned into [employer] and attached to record. lg 12/30 12:55 T-Sheet-- Draft Copy was scanned into [employer] and attached to record. gb Signatures: Tara Collins, Reg Reg gb Justin Rodriguez, Reg Reg Reema HerndonRN RN jo3 Madhu Doherty PA PA caronw Suman Garcia,RN RN jf3 The chart was reviewed and I authenticate all verbal orders and agree with the evaluation and treatment provided.Attachments: 12/29 12:04 [facility] Payment Agreement 12/30 12:55 T-Sheet-- Draft Copy gb Chart Complete MTDD
--- NOTE | 2016-12-31 12:52 | EDDOCDS ---
Physician Documentation [facility] Name: Alexsandra Farrell Age: 51 yrs Sex: Female : 1965 Arrival Date: 12/29/2016 Time: 11:02 Bed Triage 1 Private MD: Katerina Mcgee M Disposition: 12/29/16 11:44 Discharged to Home/Self Care. Impression: Encounter for removal of sutures. - Condition is Stable. - Discharge Instructions: Suture Removal, Care After. - Medication Reconciliation, Local Pharmacy Hours form. - Follow up: Katerina Mcgee; When: Call to arrange an appointment; Reason: Further diagnostic work-up, Recheck today's complaints, Continuance of care. - Problem is an ongoing problem. - Symptoms are resolved. Historical: - Allergies: no known allergies; - Home Meds: 1. bisoprolol fumarate 10 mg oral tab 1 tab once daily 2. albuterol sulfate 90 mcg/actuation Inhl HFAA 1 puff twice a day 3. aspirin 81 mg Oral TbEC 1 tab once daily 4. bisoprolol fumarate 5 mg oral tab once daily 5. lisinopril 10 mg Oral tab 1 tab once daily 6. magnesium oxide 400 mg Oral tab 400 mg twice a day 7. oxycodone-acetaminophen 5-325 mg Oral tab every 6 hours 8. paroxetine HCl 40 mg Oral tab 1 tab once daily 9. potassium chloride 10 mEq Oral TbER 1 tab once daily 10. pramipexole 0.5 mg oral tab 1 tab nightly 11. Trazodone 25 mg Oral 1 tab nightly 12. 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 No barriers to communication noted, The patient speaks fluent Malaysian, Speaks appropriately for age. - Family history: Not pertinent. - : The pt / caregiver states he / she is not on anticoagulants. Home medication list is obtained from the patient. - Exposure Risk Screening:: None identified. 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 2 in. (157.48 cm) (R); Pain 7/10; 11:49 Resp 18; Pain 3/10; jf3 11:04 Body Mass Index 33.84 (83.91 kg, 157.48 cm) jrd Procedures: 11:43 Suture/Staple removal: Removed 2 karon, from left occipital area, site appears well btw healed, Patient tolerated well. MDM: 12: [facility] Payment Agreement was scanned into [employer] and attached to record. lg 12/30 12:55 T-Sheet-- Draft Copy was scanned into [employer] and attached to record. gb Signatures: Tara Collins, Reg Reg gb Justin Rodriguez, Reg Reg Reema HerndonRN RN jo3 Madhu Doherty PA PA caronw Suman Garcia,RN RN jf3 The chart was reviewed and I authenticate all verbal orders and agree with the evaluation and treatment provided.Attachments: 12/29 12:04 [facility] Payment Agreement 12/30 12:55 T-Sheet-- Draft Copy gb Chart Complete MTDD
== END 2016-12-29 11:51 | disposition home or self-care (01) ==
LOC: M ED 11:02
DX: Z48.02 Encounter for removal of sutures (principal); I10 Essential (primary) hypertension; J45.909 Unspecified asthma, uncomplicated; B19.20 Unspecified viral hepatitis C without hepatic coma; Q04.9 Congenital malformation of brain, unspecified; R25.9 Unspecified abnormal involuntary movements; F17.200 Nicotine dependence, unspecified, uncomplicated; Z79.899 Other long term (current) drug therapy; Z79.82 Long term (current) use of aspirin; Z79.891 Long term (current) use of opiate analgesic

== ENCOUNTER 2017-01-05 16:29 | Emergency (ER) | payer OTHER ==
--- NOTE | 2017-01-05 19:28 | REP ---
Head CT without contrast: History: Occipital pain. Comparison study: December 07, 2016. Findings: Bone window settings demonstrate an intact bony calvarium. Visualized paranasal sinuses are clear. There is a small amount of residual fibrosis at the site of the previously noted left occipital scalp hematoma. No skull fracture is seen. There is mild diffuse cerebral atrophy. Vascular calcification is noted in the distal carotid arteries as before. There is no evidence of intracranial hemorrhage. No mass, infarct, extra-axial fluid collection or midline shift is seen. Impression: Vascular calcification and diffuse atrophy. No acute intracranial abnormality. Signed by Clemente Parson MD 01/05/2017 08:00 P
--- NOTE | 2017-01-05 20:08 | EDDOCDS ---
Physician Documentation [facility] Name: Alexsandra Farrell Age: 51 yrs Sex: Female : 1965 Arrival Date: 01/05/2017 Time: 16:29 Bed TR1 Private MD: Katerina Mcgee PA-C Disposition: 01/05/17 19:42 Discharged to Home/Self Care. Impression: Pain, not elsewhere classified - scalp sensitivity. - Condition is Stable. - Discharge Instructions: Neuropathic Pain. - Prescriptions for Neurontin 300 mg Oral Capsule - take 1 capsule by ORAL route every 8 hours; 30 capsule. - Medication Reconciliation, Local Pharmacy Hours form. - Follow up: Katerina Mcgee; When: 1 week; Reason: Recheck today's complaints, Continuance of care. - Problem is an ongoing problem. - Symptoms are unchanged. Historical: - Allergies: No known drug Allergies; - Home Meds: 1. albuterol sulfate 90 mcg/actuation Inhl HFAA 1 puff twice a day 2. aspirin 81 mg Oral TbEC 1 tab once daily 3. bisoprolol fumarate 10 mg oral tab 1 tab once daily 4. lisinopril 10 mg Oral tab 1 tab once daily 5. magnesium oxide 400 mg Oral tab 400 mg twice a day 6. paroxetine HCl 40 mg Oral tab 1 tab once daily 7. potassium chloride 10 mEq Oral TbER 1 tab once daily 8. pramipexole 0.5 mg oral tab 1 tab nightly 9. Trazodone 25 mg Oral 1 tab nightly 10. Vitamin B-6 100 mg Oral tab 200 mg every other day 11. 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 No barriers to communication noted, The patient speaks fluent Indonesian, Speaks appropriately for age. - Family history: Not pertinent. - : The pt / caregiver states he / she is not on anticoagulants. Home medication list is obtained from the patient, Unable to Verify Home Med List with the patient / caregiver. - Exposure Risk Screening:: None identified. Vital Signs: 01/05 16:32 BP 171 / 93; Pulse 96; Resp 18 S; Temp 97.7(O); Pulse Ox 95% on R/A; Weight 83.91 kg / gr2 184.99 lbs (R); Height 5 ft. 2 in. (157.48 cm) (R); Pain 4/10; 19:08 BP 176 / 89; Pulse 93; Resp 18; Temp 99.9; Pulse Ox 94% ; Pain 4/10; ajs 16:32 Body Mass Index 33.84 (83.91 kg, 157.48 cm) gr2 MDM: 18:39 CT Head Without Contrast Ordered. EDMS Signatures: Dispatcher [employer] EDMS Jay Jay Kendrick, Amarilis Nicholas RN RN hs1 Sandi Barajas RN RN dsf SHOAIB
--- NOTE | 2017-01-05 20:08 | EDDOCDS ---
Nurse's Notes [facility] Name: Alexsandra Farrell Age: 51 yrs Sex: Female : 1965 Arrival Date: 01/05/2017 Time: 16:29 Bed TR1 Private MD: Katerina Mcgee PA-C Diagnosis: Pain, not elsewhere classified-scalp sensitivity Presentation: 01/05 16:37 Presenting complaint: Patient states: knot on head hurting more and more - patient hs1 states was here and treated for falling down stairs December 06 and had karon removed. Patient states pain worse than ever now. Adult Sepsis Screening: The patient does not have new or worsening altered mentation. Patient's respiratory rate is less than 22. Systolic blood pressure is greater than 100. Patient has a qSOFA score of 0- Negative Sepsis Screen. Suicide/Homicide risk assessment- the patient denies having any suicidal and/or homicidal ideations and does not present with any other emotional, behavioral or mental health complaints. 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 Transition of care: patient was not received from another setting of care. 16:37 Acuity: UZAIR Level 4 hs1 16:37 Method Of Arrival: Walkin/Carried/Asstd hs1 16:38 Presenting complaint:. mlb1 Triage Assessment: 16:41 General: Appears in no apparent distress, Behavior is appropriate for age, cooperative. hs1 Pain: Location: scalp Pain currently is 5 out of 10 on a pain scale. HIV screening NA for this visit Offered previously. Respiratory: No deficits noted. Derm: Skin is pink, warm & dry. normal. Historical: - Allergies: No known drug Allergies; - Home Meds: 1. albuterol sulfate 90 mcg/actuation Inhl HFAA 1 puff twice a day 2. aspirin 81 mg Oral TbEC 1 tab once daily 3. bisoprolol fumarate 10 mg oral tab 1 tab once daily 4. lisinopril 10 mg Oral tab 1 tab once daily 5. magnesium oxide 400 mg Oral tab 400 mg twice a day 6. paroxetine HCl 40 mg Oral tab 1 tab once daily 7. potassium chloride 10 mEq Oral TbER 1 tab once daily 8. pramipexole 0.5 mg oral tab 1 tab nightly 9. Trazodone 25 mg Oral 1 tab nightly 10. Vitamin B-6 100 mg Oral tab 200 mg every other day 11. 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 No barriers to communication noted, The patient speaks fluent Maltese, Speaks appropriately for age. - Family history: Not pertinent. - : The pt / caregiver states he / she is not on anticoagulants. Home medication list is obtained from the patient, Unable to Verify Home Med List with the patient / caregiver. - Exposure Risk Screening:: None identified. Screenin:59 Screening information is obtained from the patient. Fall risk: No risks identified. dsf Assistance ADL's: requires no assistance with activities of daily living. Abuse/DV Screen: The patient / caregiver reports he/she is: not in a situation that causes fear, pain or injury. Nutritional screening: No deficits noted. Advance Directives: Currently, there is no health care proxy. home support is adequate. Assessment: 18:20 Adult Sepsis Screening: The patient does not have new or worsening altered mentation. dsf Patient's respiratory rate is less than 22. Systolic blood pressure is greater than 100. Patient has a qSOFA score of 0- Negative Sepsis Screen. General: Appears in no apparent distress, Behavior is appropriate for age, cooperative. Pain: Location: scalp Pain currently is 5 out of 10 on a pain scale. Quality of pain is described as sore. Respiratory: Airway is patent Respiratory effort is even, unlabored, Respiratory pattern is regular, symmetrical. Derm: Skin is pink, warm & dry. Vital Signs: 16:32 BP 171 / 93; Pulse 96; Resp 18 S; Temp 97.7(O); Pulse Ox 95% on R/A; Weight 83.91 kg gr2 (R); Height 5 ft. 2 in. (157.48 cm) (R); Pain 4/10; 19:08 BP 176 / 89; Pulse 93; Resp 18; Temp 99.9; Pulse Ox 94% ; Pain 4/10; ajs 16:32 Body Mass Index 33.84 (83.91 kg, 157.48 cm) gr2 Vitals: 16:32 Log In Time: January 05, 2017 at 16:32. gr2 ED Course: 16:31 Patient visited by Sarah Pittman. gr2 16:31 Katerina Mcgee is Private Physician. gr2 16:31 Patient moved to Waiting gr2 16:33 Patient visited by Sarah Pittman. gr2 16:33 Patient moved to Pre RCE gr2 16:38 Patient visited by Delano Art, CIARRA. mlb1 16:39 Triage Initiated hs1 17:43 Reema Carvalho, RN is Primary Nurse. dsf 17:43 Thea Avila,CIARRA is Primary Nurse. dsf 17:43 Patient moved to I8 / dsf 18:21 Patient visited by Sandi Barajas RN. dsf 18:38 Jay Jay Kendrick FNP is PHCP. ke 18:38 Patient visited by Jay Jay Kendrick FNP. ke 18:38 Patient visited by Jay Jay Kendrick FNP. ke 19:08 Patient visited by Jay Jay Kendrick FNP. ke 19:08 Jay Jay Kendrick FNP is PHCP. ke 19:08 Patient visited by Jay Jay Kendrick FNP. ke 19:09 Patient visited by Vivian Mills. ajs 19:41 Katerina Mcgee is Referral Physician. ke 19:59 The patient / caregiver is instructed regarding the plan of care and ED course. dsf 19:59 No IV's were initiated during this patient's visit. No procedures done that require dsf assistance. 20:01 Patient moved to TR1 kc3 Order Results: There are currently no results for this order. Outcome: 19:42 Discharge ordered by Provider. ke 19:59 Discharge Assessment: Patient awake, alert and oriented x 3. No cognitive and/or dsf functional deficits noted. Patient verbalized understanding of disposition instructions. patient administered narcotics - no. The following High Risk Discharge criteria are identified: None. Discharged to home ambulatory. Condition: stable. Discharge instructions given to patient, Instructed on discharge instructions, follow up and referral plans. medication usage, Demonstrated understanding of instructions, medications, Pt was receptive of discharge instructions/ teaching. Prescriptions given X 1. CT Study completed. Property sent home with patient. 20:07 Patient left the ED. dsf Signatures: Jay Jay Kendrick, ASSEMBLER FINGER BUFFS ASSEMBLER FINGER BUFFS Delano Garcia RN RN mlb1 Amarilis Swartz RN RN hs1 Sandi BarajasRN RN dsf Vivian Mills Gainslee gr2 Gricelda Coleman,RN RN kc3 MTDD
--- NOTE | 2017-01-07 21:08 | EDDOCDS ---
Physician Documentation [facility] Name: Alexsandra Farrell Age: 51 yrs Sex: Female : 1965 Arrival Date: 01/05/2017 Time: 16:29 Bed TR1 Private MD: Katerina Mcgee PA-C Disposition: 01/05/17 19:42 Discharged to Home/Self Care. Impression: Pain, not elsewhere classified - scalp sensitivity. - Condition is Stable. - Discharge Instructions: Neuropathic Pain. - Prescriptions for Neurontin 300 mg Oral Capsule - take 1 capsule by ORAL route every 8 hours; 30 capsule. - Medication Reconciliation, Local Pharmacy Hours form. - Follow up: Katerina Mcgee; When: 1 week; Reason: Recheck today's complaints, Continuance of care. - Problem is an ongoing problem. - Symptoms are unchanged. Historical: - Allergies: No known drug Allergies; - Home Meds: 1. albuterol sulfate 90 mcg/actuation Inhl HFAA 1 puff twice a day 2. aspirin 81 mg Oral TbEC 1 tab once daily 3. bisoprolol fumarate 10 mg oral tab 1 tab once daily 4. lisinopril 10 mg Oral tab 1 tab once daily 5. magnesium oxide 400 mg Oral tab 400 mg twice a day 6. paroxetine HCl 40 mg Oral tab 1 tab once daily 7. potassium chloride 10 mEq Oral TbER 1 tab once daily 8. pramipexole 0.5 mg oral tab 1 tab nightly 9. Trazodone 25 mg Oral 1 tab nightly 10. Vitamin B-6 100 mg Oral tab 200 mg every other day 11. 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 No barriers to communication noted, The patient speaks fluent Welsh, Speaks appropriately for age. - Family history: Not pertinent. - : The pt / caregiver states he / she is not on anticoagulants. Home medication list is obtained from the patient, Unable to Verify Home Med List with the patient / caregiver. - Exposure Risk Screening:: None identified. Vital Signs: 01/05 16:32 BP 171 / 93; Pulse 96; Resp 18 S; Temp 97.7(O); Pulse Ox 95% on R/A; Weight 83.91 kg / gr2 184.99 lbs (R); Height 5 ft. 2 in. (157.48 cm) (R); Pain 4/10; 19:08 BP 176 / 89; Pulse 93; Resp 18; Temp 99.9; Pulse Ox 94% ; Pain 4/10; ajs 16:32 Body Mass Index 33.84 (83.91 kg, 157.48 cm) gr2 MDM: 18:39 CT Head Without Contrast Ordered. EDMS 20:36 Financial registration complete. zo :36 [facility] Payment Agreement was scanned into [employer] and attached to record. zo 01/06 13:34 T-Sheet-- Draft Copy was scanned into [employer] and attached to record. gb Signatures: Dispatcher [employer] EDMS Tara Collins, Reg Reg gb Jay Jay Kendrick, FEATHER EDGER FEATHER EDGER Raymundo Lau zo Amarilis Swartz RN RN hs1 Sandi Barajas,RN RN dsf The chart was reviewed and I authenticate all verbal orders and agree with the evaluation and treatment provided.Attachments: 01/05 20:36 [facility] Payment Agreement zo 01/06 13:34 T-Sheet-- Draft Copy gb Chart Complete MTDD
--- NOTE | 2017-01-07 21:08 | EDDOCDS ---
Physician Documentation [facility] Name: Alexsandra Farrell Age: 51 yrs Sex: Female : 1965 Arrival Date: 01/05/2017 Time: 16:29 Bed TR1 Private MD: Katerina Mcgee PA-C Disposition: 01/05/17 19:42 Discharged to Home/Self Care. Impression: Pain, not elsewhere classified - scalp sensitivity. - Condition is Stable. - Discharge Instructions: Neuropathic Pain. - Prescriptions for Neurontin 300 mg Oral Capsule - take 1 capsule by ORAL route every 8 hours; 30 capsule. - Medication Reconciliation, Local Pharmacy Hours form. - Follow up: Katerina Mcgee; When: 1 week; Reason: Recheck today's complaints, Continuance of care. - Problem is an ongoing problem. - Symptoms are unchanged. Historical: - Allergies: No known drug Allergies; - Home Meds: 1. albuterol sulfate 90 mcg/actuation Inhl HFAA 1 puff twice a day 2. aspirin 81 mg Oral TbEC 1 tab once daily 3. bisoprolol fumarate 10 mg oral tab 1 tab once daily 4. lisinopril 10 mg Oral tab 1 tab once daily 5. magnesium oxide 400 mg Oral tab 400 mg twice a day 6. paroxetine HCl 40 mg Oral tab 1 tab once daily 7. potassium chloride 10 mEq Oral TbER 1 tab once daily 8. pramipexole 0.5 mg oral tab 1 tab nightly 9. Trazodone 25 mg Oral 1 tab nightly 10. Vitamin B-6 100 mg Oral tab 200 mg every other day 11. 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 No barriers to communication noted, The patient speaks fluent Belarusian, Speaks appropriately for age. - Family history: Not pertinent. - : The pt / caregiver states he / she is not on anticoagulants. Home medication list is obtained from the patient, Unable to Verify Home Med List with the patient / caregiver. - Exposure Risk Screening:: None identified. Vital Signs: 01/05 16:32 BP 171 / 93; Pulse 96; Resp 18 S; Temp 97.7(O); Pulse Ox 95% on R/A; Weight 83.91 kg / gr2 184.99 lbs (R); Height 5 ft. 2 in. (157.48 cm) (R); Pain 4/10; 19:08 BP 176 / 89; Pulse 93; Resp 18; Temp 99.9; Pulse Ox 94% ; Pain 4/10; ajs 16:32 Body Mass Index 33.84 (83.91 kg, 157.48 cm) gr2 MDM: 18:39 CT Head Without Contrast Ordered. EDMS 20:36 Financial registration complete. zo :36 [facility] Payment Agreement was scanned into [employer] and attached to record. zo 01/06 13:34 T-Sheet-- Draft Copy was scanned into [employer] and attached to record. gb Signatures: Dispatcher [employer] EDMS Tara Collins, Reg Reg gb Jay Jay Kendrick, STUDENT SUCCESS COUNSELOR STUDENT SUCCESS COUNSELOR Raymundo Lau zo Amarilis Swartz RN RN hs1 Sandi Barajas,RN RN dsf The chart was reviewed and I authenticate all verbal orders and agree with the evaluation and treatment provided.Attachments: 01/05 20:36 [facility] Payment Agreement zo 01/06 13:34 T-Sheet-- Draft Copy gb Chart Complete MTDD
--- NOTE | 2017-01-07 21:08 | EDDOCDS ---
Nurse's Notes [facility] Name: Alexsandra Farrell Age: 51 yrs Sex: Female : 1965 Arrival Date: 01/05/2017 Time: 16:29 Bed TR1 Private MD: Katerina Mcgee PA-C Diagnosis: Pain, not elsewhere classified-scalp sensitivity Presentation: 01/05 16:37 Presenting complaint: Patient states: knot on head hurting more and more - patient hs1 states was here and treated for falling down stairs December 06 and had karon removed. Patient states pain worse than ever now. Adult Sepsis Screening: The patient does not have new or worsening altered mentation. Patient's respiratory rate is less than 22. Systolic blood pressure is greater than 100. Patient has a qSOFA score of 0- Negative Sepsis Screen. Suicide/Homicide risk assessment- the patient denies having any suicidal and/or homicidal ideations and does not present with any other emotional, behavioral or mental health complaints. 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 Transition of care: patient was not received from another setting of care. 16:37 Acuity: UZAIR Level 4 hs1 16:37 Method Of Arrival: Walkin/Carried/Asstd hs1 16:38 Presenting complaint:. mlb1 Triage Assessment: 16:41 General: Appears in no apparent distress, Behavior is appropriate for age, cooperative. hs1 Pain: Location: scalp Pain currently is 5 out of 10 on a pain scale. HIV screening NA for this visit Offered previously. Respiratory: No deficits noted. Derm: Skin is pink, warm & dry. normal. Historical: - Allergies: No known drug Allergies; - Home Meds: 1. albuterol sulfate 90 mcg/actuation Inhl HFAA 1 puff twice a day 2. aspirin 81 mg Oral TbEC 1 tab once daily 3. bisoprolol fumarate 10 mg oral tab 1 tab once daily 4. lisinopril 10 mg Oral tab 1 tab once daily 5. magnesium oxide 400 mg Oral tab 400 mg twice a day 6. paroxetine HCl 40 mg Oral tab 1 tab once daily 7. potassium chloride 10 mEq Oral TbER 1 tab once daily 8. pramipexole 0.5 mg oral tab 1 tab nightly 9. Trazodone 25 mg Oral 1 tab nightly 10. Vitamin B-6 100 mg Oral tab 200 mg every other day 11. 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 No barriers to communication noted, The patient speaks fluent Irish, Speaks appropriately for age. - Family history: Not pertinent. - : The pt / caregiver states he / she is not on anticoagulants. Home medication list is obtained from the patient, Unable to Verify Home Med List with the patient / caregiver. - Exposure Risk Screening:: None identified. Screenin:59 Screening information is obtained from the patient. Fall risk: No risks identified. dsf Assistance ADL's: requires no assistance with activities of daily living. Abuse/DV Screen: The patient / caregiver reports he/she is: not in a situation that causes fear, pain or injury. Nutritional screening: No deficits noted. Advance Directives: Currently, there is no health care proxy. home support is adequate. Assessment: 18:20 Adult Sepsis Screening: The patient does not have new or worsening altered mentation. dsf Patient's respiratory rate is less than 22. Systolic blood pressure is greater than 100. Patient has a qSOFA score of 0- Negative Sepsis Screen. General: Appears in no apparent distress, Behavior is appropriate for age, cooperative. Pain: Location: scalp Pain currently is 5 out of 10 on a pain scale. Quality of pain is described as sore. Respiratory: Airway is patent Respiratory effort is even, unlabored, Respiratory pattern is regular, symmetrical. Derm: Skin is pink, warm & dry. Vital Signs: 16:32 BP 171 / 93; Pulse 96; Resp 18 S; Temp 97.7(O); Pulse Ox 95% on R/A; Weight 83.91 kg gr2 (R); Height 5 ft. 2 in. (157.48 cm) (R); Pain 4/10; 19:08 BP 176 / 89; Pulse 93; Resp 18; Temp 99.9; Pulse Ox 94% ; Pain 4/10; ajs 16:32 Body Mass Index 33.84 (83.91 kg, 157.48 cm) gr2 Vitals: 16:32 Log In Time: January 05, 2017 at 16:32. gr2 ED Course: 16:31 Patient visited by Sarah Pittman. gr2 16:31 Katerina Mcgee is Private Physician. gr2 16:31 Patient moved to Waiting gr2 16:33 Patient visited by Sarah Pittman. gr2 16:33 Patient moved to Pre RCE gr2 16:38 Patient visited by Delano Art, CIARRA. mlb1 16:39 Triage Initiated hs1 17:43 Reema Carvalho, RN is Primary Nurse. dsf 17:43 Thea Avila,CIARRA is Primary Nurse. dsf 17:43 Patient moved to I dsf 18:21 Patient visited by Sandi Barajas RN. dsf 18:38 Jay Jay Kendrick FNP is PHCP. ke 18:38 Patient visited by Jay Jay Kendrick FNP. ke 18:38 Patient visited by Jay Jay Kendrick FNP. ke 19:08 Patient visited by Jay Jay Kendrick FNP. ke 19:08 Jay Jay Kendrick FNP is PHCP. ke 19:08 Patient visited by Jay Jay Kendrick FNP. ke 19:09 Patient visited by Vivian Mills. ajs 19:41 Katerina Mcgee is Referral Physician. ke 19:59 The patient / caregiver is instructed regarding the plan of care and ED course. dsf 19:59 No IV's were initiated during this patient's visit. No procedures done that require dsf assistance. 20:01 Patient moved to TR1 kc3 20:15 CT Head Without Contrast Returned. EDMS 20:36 [facility] [place] was scanned into [employer] and attached to record. zo 01/06 13:34 T-Sheet-- Draft Copy was scanned into [employer] and attached to record. gb Order Results: Radiology Order: CT Head Without Contrast Test: CT Head Without Contrast REASON FOR EXAMINATION: occipital pain; Head CT without contrast:; ; History: Occipital pain.; ; Comparison study: December 07, 2016.; ; Findings: Bone window settings demonstrate an intact bony calvarium. Visualized; paranasal sinuses are clear. There is a small amount of residual fibrosis at the; site of the previously noted left occipital scalp hematoma. No skull fracture is; seen.; ; There is mild diffuse cerebral atrophy. Vascular calcification is noted in the; distal carotid arteries as before. There is no evidence of intracranial; hemorrhage. No mass, infarct, extra-axial fluid collection or midline shift is; seen.; ; Impression:; ; Vascular calcification and diffuse atrophy. No acute intracranial abnormality.; ; ; Signed by; Clemente Parson MD 01/05/2017 08:00 P; Outcome: 01/05 19:42 Discharge ordered by Provider. 19:59 Discharge Assessment: Patient awake, alert and oriented x 3. No cognitive and/or dsf functional deficits noted. Patient verbalized understanding of disposition instructions. patient administered narcotics - no. The following High Risk Discharge criteria are identified: None. Discharged to home ambulatory. Condition: stable. Discharge instructions given to patient, Instructed on discharge instructions, follow up and referral plans. medication usage, Demonstrated understanding of instructions, medications, Pt was receptive of discharge instructions/ teaching. Prescriptions given X 1. CT Study completed. Property sent home with patient. 20:07 Patient left the ED. dsf Signatures: Dispatcher [employer] EDMS Tara Collins, Reg Reg gb Jay Jay Kendrick, ENDOSCOPIC TECHNICIAN ENDOSCOPIC TECHNICIAN Delano Garcia RN RN mlb1 Raymundo Ortiz Hannah RN RN hs1 Sandi Barajas,CIARRA RN dsf Vivian Mills Gainslee gr2 Gricelda Coleman,RN RN kc3 Chart Complete MTDD
== END 2017-01-05 20:07 | disposition home or self-care (01) ==
LOC: M ED 16:29
DX: R20.8 Other disturbances of skin sensation (principal); I10 Essential (primary) hypertension; J45.909 Unspecified asthma, uncomplicated; F41.9 Anxiety disorder, unspecified; B19.20 Unspecified viral hepatitis C without hepatic coma; Z79.899 Other long term (current) drug therapy; Z79.82 Long term (current) use of aspirin; F17.210 Nicotine dependence, cigarettes, uncomplicated

== ENCOUNTER → 2017-02-02 | Outpatient (REF) | payer OTHER | LOC: M SFHCADAM 09:37 | PROVIDERS: ATTEND Physician Assistant | DX: Z77.011 Contact with and (suspected) exposure to lead (principal) ==

== ENCOUNTER → 2017-02-08 | Outpatient (REF) | payer OTHER ==
[2017-02-08 12:54] LABS: ALBUMIN 3.4 GM/DL (3.2-5.2); ALBUMIN/GLOBULIN RATIO 0.89 (1.00-1.93); ALKALINE PHOSPHATASE 280 U/L (45-117); ALT/SGPT 68 U/L (12-78); ANION GAP 7 MEQ/L (8-16); AST/SGOT 83 U/L (15-37); BILIRUBIN,TOTAL 0.6 MG/DL (0.2-1.0); BLOOD UREA NITROGEN 5 MG/DL (7-18); CALCIUM LEVEL 9.3 MG/DL (8.5-10.1); CARBON DIOXIDE LEVEL 29 MEQ/L (21-32); CHLORIDE LEVEL 105 MEQ/L (98-107); CREATININE FOR GFR 0.74 MG/DL (0.55-1.02); GLOMERULAR FILTRATION RATE > 60.0 (>51); GLUCOSE, FASTING 93 MG/DL (70-105); POTASSIUM SERUM 4.1 MEQ/L (3.5-5.1); SODIUM LEVEL 141 MEQ/L (136-145); TOTAL PROTEIN 7.2 GM/DL (6.4-8.2)
[2017-02-08 13:09] LABS: BASO # 0.1 K/mm3 (0.0-0.2); BASO % 0.7 % (0.0-1.0); EOS # 0.2 K/mm3 (0.0-0.50); EOS % 1.8 % (0.0-3.0); LARGE UNSTAINED CELL # 0.1 K/mm3 (0.0-0.4); LARGE UNSTAINED CELL % 1.1 % (0.0-4.0); LYMPH # 2.9 K/mm3 (1.5-4.5); LYMPH % 31.5 % (24.0-44.0); MEAN CORPUSCULAR HEMOGLOBIN 32.3 pg (27.0-33.0); MONO # 0.3 K/mm3 (0.0-0.8); MONO % 3.7 % (0.0-5.0); NEUTROPHILS # 5.5 K/mm3 (1.8-7.7); NEUTROPHILS % 61.2 % (36.0-66.0); PLATELET COUNT, AUTOMATED 296 k/mm3 (150-450); RED CELL DISTRIBUTION WIDTH 11.7 % (11.5-14.5)
== END ==
LOC: M SFHCPLAZ 08:50
PROVIDERS: ATTEND Internal Medicine Infectious Disease
DX: B18.2 Chronic viral hepatitis C (principal)

== ENCOUNTER → 2017-03-29 | Outpatient (REF) | payer OTHER ==
[2017-03-29 11:54] LABS: ALBUMIN 3.3 GM/DL (3.2-5.2); ALBUMIN/GLOBULIN RATIO 0.87 (1.00-1.93); BILIRUBIN,DIRECT 0.1 MG/DL (0.0-0.2); BILIRUBIN,TOTAL 0.3 MG/DL (0.2-1.0); TOTAL PROTEIN 7.1 GM/DL (6.4-8.2)
[2017-03-31 14:16] LABS: HEPATITIS C QUANTITATION HCV Not Detected IU/mL (.)
== END ==
LOC: M SFHCPLAZ 09:55
PROVIDERS: ATTEND Internal Medicine Infectious Disease
DX: B18.2 Chronic viral hepatitis C (principal)

== ENCOUNTER → 2017-08-16 | Outpatient (REF) | payer OTHER ==
[~2017-08-16] MED LIST changes: +CEFT500T3 PO; +IPRASOL4 IN; -MELO7.5T6 PO; +MELO7.5T7 PO; +NEBUMIS2 XX; +PRED20TA PO; +TRAZ25TA PO; +VARE05TA PO; +VITA1CAP40 PO; -VITA50003 PO
[2017-08-16 16:31] LABS: ALBUMIN 3.7 GM/DL (3.2-5.2); ALBUMIN/GLOBULIN RATIO 0.88 (1.00-1.93); ALKALINE PHOSPHATASE 174 U/L (45-117); ALT/SGPT 61 U/L (12-78); AST/SGOT 44 U/L (15-37); BILIRUBIN,DIRECT < 0.1 MG/DL (0.0-0.2); BILIRUBIN,TOTAL 0.2 MG/DL (0.2-1.0); TOTAL PROTEIN 7.9 GM/DL (6.4-8.2)
[2017-08-19 10:32] LABS: HEPATITIS C QUANTITATION HCV Not Detected IU/mL (.)
== END ==
LOC: M SFHCPLAZ 13:03
PROVIDERS: ATTEND Internal Medicine Infectious Disease
DX: B18.2 Chronic viral hepatitis C (principal)

== ENCOUNTER 2017-08-22 08:50 | Emergency (ER) | payer OTHER ==
[~2017-08-22 08:50] MED LIST changes: -CEFT500T3 PO; -IPRASOL4 IN; -NEBUMIS2 XX; -PRED20TA PO; -TRAZ25TA PO; -VARE05TA PO
[2017-08-22] MEDS ORDERED: TRAZ25TA PO (09:02)
[2017-08-22] MEDS ORDERED: LISI10TA4 PO (09:02)
[2017-08-22] MEDS ORDERED: methylPREDNISolone INJ 125 MG/2 ML VIAL (J2930) IV ONE (09:30)
[2017-08-22] MEDS: IPRATROPIUM 0.5MG/ALBUTEROL 2.5MG INH SOL UD 3ML (DUONEB)(J7620) NEB SCH ×3 (09:40→10:05)
[2017-08-22 09:46] LABS: BASO # 0.1 K/mm3 (0.0-0.2); EOS # 0.4 K/mm3 (0.0-0.50); EOS % 5.2 % (0.0-3.0); LARGE UNSTAINED CELL # 0.1 K/mm3 (0.0-0.4); LARGE UNSTAINED CELL % 1.7 % (0.0-4.0); LYMPH # 2.4 K/mm3 (1.5-4.5); MEAN CORPUSCULAR HEMOGLOBIN 32.8 pg (27.0-33.0); MEAN CORPUSCULAR HGB CONC 35.9 g/dl (32.0-36.5); MEAN CORPUSCULAR VOLUME 91.3 fl (80.0-96.0); MONO # 0.3 K/mm3 (0.0-0.8); MONO % 4.1 % (0.0-5.0); NEUTROPHILS # 4.2 K/mm3 (1.8-7.7); PLATELET COUNT, AUTOMATED 281 k/mm3 (150-450); RED CELL DISTRIBUTION WIDTH 11.9 % (11.5-14.5); WHITE BLOOD COUNT 7.5 K/mm3 (4.0-10.0)
--- NOTE | 2017-08-22 09:47 | REP ---
CHEST, SINGLE VIEW: COMPARISON: 08/25/2016. There is no evidence of acute infiltrate. No pleural effusion is seen. The heart is normal in size. The mediastinal silhouette is unremarkable. The visualized osseous structures are intact. IMPRESSION: No acute pulmonary disease. Signed by Alex Hanks MD 08/22/2017 05:31 P
[2017-08-22 10:11] LABS: ALBUMIN 3.4 GM/DL (3.2-5.2); ALBUMIN/GLOBULIN RATIO 0.79 (1.00-1.93); ALKALINE PHOSPHATASE 154 U/L (45-117); ALT/SGPT 44 U/L (12-78); ANION GAP 9 MEQ/L (8-16); AST/SGOT 27 U/L (15-37); BILIRUBIN,DIRECT < 0.1 MG/DL (0.0-0.2); BILIRUBIN,TOTAL 0.3 MG/DL (0.2-1.0); BLOOD UREA NITROGEN 6 MG/DL (7-18); CALCIUM LEVEL 8.4 MG/DL (8.5-10.1); CARBON DIOXIDE LEVEL 27 MEQ/L (21-32); CHLORIDE LEVEL 103 MEQ/L (98-107); CREATININE FOR GFR 0.76 MG/DL (0.55-1.02); GLOMERULAR FILTRATION RATE > 60.0 (>51); GLUCOSE, FASTING 111 MG/DL (70-105); POTASSIUM SERUM 3.8 MEQ/L (3.5-5.1); SODIUM LEVEL 139 MEQ/L (136-145); TOTAL PROTEIN 7.7 GM/DL (6.4-8.2)
[2017-08-22] MEDS ORDERED: VARE05TA PO (10:46)
[2017-08-22 13:31] VITALS: O2SAT 90
[2017-08-22] MEDS ORDERED: PRED20TA PO (13:38)
[2017-08-22] MEDS ORDERED: IPRASOL4 IN (13:38)
[2017-08-22] MEDS ORDERED: CEFT500T3 PO (13:39)
[2017-08-22] MEDS ORDERED: NEBUMIS2 XX (13:41)
[2017-08-22 14:00] VITALS: BP 116/54
--- NOTE | 2017-08-22 18:06 | ECGEPIP ---
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
== END 2017-08-22 14:02 | disposition home or self-care (01) ==
LOC: M ED 08:50
DX: J44.9 Chronic obstructive pulmonary disease, unspecified (principal); I10 Essential (primary) hypertension; E78.70 Disorder of bile acid and cholesterol metabolism, unspecified; F41.9 Anxiety disorder, unspecified; F33.9 Major depressive disorder, recurrent, unspecified; F17.210 Nicotine dependence, cigarettes, uncomplicated; Z79.899 Other long term (current) drug therapy; Z87.09 Personal history of other diseases of the respiratory system
CPT/HCPCS: 71010; 80048; 80076; 82550; 82553; 83605; 83880; 84443; 85025; 93000; 93041; 94640; 94760; 96374; 99285; J2930

== ENCOUNTER → 2017-08-22 | Outpatient (REF) | payer OTHER ==
[2017-08-24 08:57] LABS: ALT 42 IU/L (0-40); FIBROSIS STAGE F1-F2 (.); GGT 44 IU/L (0-60); HAPTOGLOBIN 138 mg/dL (34-200); NECROINFLAM SCORE 0.28 (0.00-0.17); NECROINFLAMM GRADE A0-A1 (.); TOTAL BILIRUBIN 0.4 mg/dL (0.0-1.2)
== END ==
LOC: M LAB REF 09:37
PROVIDERS: ATTEND Internal Medicine Infectious Disease
DX: B18.2 Chronic viral hepatitis C (principal)

== ENCOUNTER → 2017-10-13 | Outpatient (REF) | payer OTHER, MEDICAID ==
[~2017-10-13] MED LIST changes: +CEFT500T3 PO; +IPRASOL4 IN; +NEBUMIS2 XX; +PRED20TA PO; +TRAZ25TA PO; +VARE05TA PO
== END ==
LOC: M LAB REF 09:33
PROVIDERS: ATTEND Dermatology
DX: L82.0 Inflamed seborrheic keratosis (principal)

== ENCOUNTER → 2017-10-28 | Outpatient (CLI) | payer OTHER ==
--- NOTE | 2017-10-28 10:18 | REPMRS ---
Patient History The patient states she has not had a clinical breast exam in over a year. Patient is postmenopausal and has history of skin cancer at age 42. Family history of breast cancer in sister at age 59, breast cancer in sister at age 49, and colorectal cancer in mother at age 50 or over. Digital Woman Screen Mammo: October 28, 2017 - Exam #: [id number] Bilateral CC and MLO view(s) were taken. Technologist: Jojo Lewis, Technologist Prior study comparison: May 21, 2016, digital woman screen mammo performed at [facility]. December 25, 2014, bilateral digital mammo screening bilat, performed at [facility]. FINDINGS: There are scattered fibroglandular densities. There has been no change in the appearance of the mammogram from the prior studies. There is a mild amount of scattered fibroglandular density which is fairly symmetric. There is no interval development of dominant mass, architectural distortion, or clustered microcalcification suggestive of malignancy. ASSESSMENT: BI-RADS/ACR category 1 mammogram. Negative. Recommendation Routine screening mammogram in 1 year (for women over age 40). This mammogram was interpreted with the aid of an FDA-approved computer-aided dectection system. Electronically Signed By: Emeka Parson MD 10/28/17 1011
== END ==
LOC: M WHC 08:37
PROVIDERS: ATTEND Family Medicine
DX: Z12.31 Encounter for screening mammogram for malignant neoplasm of breast (principal)

== ENCOUNTER 2017-11-09 01:56 | Emergency (ER) | payer MEDICAID, OTHER ==
[~2017-11-09] VITALS: Ht 157.5 cm; Wt 88.6 kg
[2017-11-09] MEDS ORDERED: NAPR500T3 PO (03:18)
[2017-11-09 03:24] VITALS: BP 157/69
[2017-11-09] MEDS ORDERED: NAPROXEN 250 MG TAB PO ONE (03:30)
[2017-11-09] MEDS ORDERED: NORCO, ANEXSIA 5/325MG TABLET (HYDROcodone/ACETAMINOPHEN) PO ONE (03:30)
[2017-11-09] MEDS ORDERED: NORCO 5/325MG TABLET (BULK FOR ED) PO ONE (04:00)
--- NOTE | 2017-11-09 07:55 | REP ---
Left ankle four views: There is no fracture or dislocation. The mortise is symmetric. There are calcaneal plantar and Achilles spurs. The skeletal structures and soft tissues otherwise are unremarkable. Signed by Alex Lugo MD 11/09/2017 07:46 A
--- NOTE | 2017-11-09 07:56 | REP ---
Left foot four views : There is no fracture or dislocation. Mineralization and joint spaces are normal. There are no calcifications or foreign bodies. Impression: Negative left foot there are calcaneal plantar and Achilles spurs. . Signed by Alex Lugo MD 11/09/2017 07:48 A
== END 2017-11-09 04:40 | disposition home or self-care (01) ==
LOC: M ED 01:56 → EDBD 01:56 → M ED 04:40
DX: S93.412A Sprain of calcaneofibular ligament of left ankle, initial encounter (principal); W10.9XXA Fall (on) (from) unspecified stairs and steps, initial encounter; Y92.099 Unspecified place in other non-institutional residence as the place of occurrence of the external cause; Y93.9 Activity, unspecified; Y99.9 Unspecified external cause status; F17.200 Nicotine dependence, unspecified, uncomplicated; M77.32 Calcaneal spur, left foot; Z79.899 Other long term (current) drug therapy

== ENCOUNTER → 2017-12-23 | Outpatient (REF) | payer OTHER | LOC: M SFHCWAGY 11:32 | DX: Z12.4 Encounter for screening for malignant neoplasm of cervix (principal) ==

== ENCOUNTER → 2018-01-05 | Outpatient (REF) | payer OTHER ==
[2018-01-05 13:06] LABS: ALBUMIN 3.7 GM/DL (3.2-5.2); ALBUMIN/GLOBULIN RATIO 1.09 (1.00-1.93); ALKALINE PHOSPHATASE 168 U/L (45-117); ALT/SGPT 48 U/L (12-78); AST/SGOT 34 U/L (7-37); BILIRUBIN,DIRECT < 0.1 MG/DL (0.0-0.2); BILIRUBIN,TOTAL 0.2 MG/DL (0.2-1.0); TOTAL PROTEIN 7.1 GM/DL (6.4-8.2)
[2018-01-09 08:08] LABS: HEPATITIS C QUANTITATION HCV Not Detected IU/mL (.)
== END ==
LOC: M SFHCPLAZ 10:23
DX: B18.2 Chronic viral hepatitis C (principal)

== ENCOUNTER → 2018-01-12 | Outpatient (CLI) | payer OTHER | LOC: M RAD 13:26 | DX: M47.892 Other spondylosis, cervical region (principal); M47.896 Other spondylosis, lumbar region; Z98.1 Arthrodesis status | CPT/HCPCS: 72052 ==

== ENCOUNTER → 2018-03-23 | Day surgery (SDC) | payer OTHER ==
[~2018-03-23] MED LIST changes: -ALBU17IN INH; -ASPI1TAB PO; -BISO5TAB5 PO; -CEFT500T3 PO; -CIPR-250 PO; -CYCL10TA PO; -DITR1TAB PO; -IPRASOL4 IN; -LISI10TA4 PO; +LR 1,000 ML IV; -MAGN400C2 PO; -MELO7.5T7 PO; -NEBUMIS2 XX; -PAXI30TA11 PO; -PRAM0.5T4 PO; -PRED20TA PO; -ROBA750T4 PO; -TRAZ25TA PO; -VALI5TAB PO; -VARE05TA PO; -VICO5TAB16 PO; -VITA1CAP40 PO; -[UNRECOGNIZED DRUG - REMARK] PO; -flexeril PO
[2018-03-23 08:23] LABS: HEMATOCRIT 41.5 % (36.0-47.0); HEMOGLOBIN 14.2 g/dl (12.0-15.5); MEAN CORPUSCULAR HEMOGLOBIN 30.5 pg (27.0-33.0); MEAN CORPUSCULAR HGB CONC 34.2 g/dl (32.0-36.5); MEAN CORPUSCULAR VOLUME 89.2 fl (80.0-96.0); PLATELET COUNT, AUTOMATED 315 10^3/uL (150-450); RED BLOOD COUNT 4.65 10^6/uL (4.00-5.40); RED CELL DISTRIBUTION WIDTH 11.8 % (11.5-14.5)
[2018-03-23 08:53] LABS: ANION GAP 4 MEQ/L (8-16); BLOOD UREA NITROGEN 8 MG/DL (7-18); CALCIUM LEVEL 8.8 MG/DL (8.5-10.1); CARBON DIOXIDE LEVEL 29 MEQ/L (21-32); CHLORIDE LEVEL 110 MEQ/L (98-107); CREATININE FOR GFR 0.78 MG/DL (0.55-1.30); GLOMERULAR FILTRATION RATE > 60.0 (>51); GLUCOSE, FASTING 103 MG/DL (70-100); POTASSIUM SERUM 3.9 MEQ/L (3.5-5.1); SODIUM LEVEL 143 MEQ/L (136-145)
== END | disposition home or self-care (01) ==
LOC: M SDC 07:52
DX: G56.21 Lesion of ulnar nerve, right upper limb (principal); Z53.09 Procedure and treatment not carried out because of other contraindication; T07.XXXA Unspecified multiple injuries, initial encounter; B88.9 Infestation, unspecified
CPT/HCPCS: 80048

== ENCOUNTER → 2018-05-25 | Outpatient (CLI) | payer OTHER ==
[2018-05-25 14:00] LABS: BASO # 0.1 10^3/uL (0.0-0.2); BASO % 0.6 % (0.0-1.0); EOS # 0.2 10^3/uL (0.0-0.50); EOS % 2.8 % (0.0-3.0); HEMATOCRIT 41.9 % (36.0-47.0); HEMOGLOBIN 14.7 g/dl (12.0-15.5); IMMATURE GRANULOCYTE % 0.5 % (0-3.0); LYMPH # 2.1 10^3/uL (1.5-4.5); LYMPH % 26.1 % (24.0-44.0); MEAN CORPUSCULAR HEMOGLOBIN 31.5 pg (27.0-33.0); MEAN CORPUSCULAR HGB CONC 35.1 g/dl (32.0-36.5); MEAN CORPUSCULAR VOLUME 89.7 fl (80.0-96.0); MONO # 0.5 10^3/uL (0.0-0.8); MONO % 5.7 % (0.0-5.0); NEUTROPHILS # 5.3 10^3/uL (1.8-7.7); NEUTROPHILS % 64.3 % (36.0-66.0); PLATELET COUNT, AUTOMATED 260 10^3/uL (150-450); RED BLOOD COUNT 4.67 10^6/uL (4.00-5.40); RED CELL DISTRIBUTION WIDTH 12.1 % (11.5-14.5); WHITE BLOOD COUNT 8.2 10^3/uL (4.0-10.0)
[2018-05-25 14:06] LABS: COLLAGEN EPINEPHRINE 90 SECONDS (74-162)
[2018-05-25 14:10] LABS: INR 0.94; PROTHROMBIN TIME 12.7 SECONDS (12.1-14.4)
[2018-05-25 14:11] LABS: PARTIAL THROMBOPLASTIN TIME 25.1 SECONDS (25.4-37.6)
[2018-05-25 14:25] LABS: ALBUMIN 3.5 GM/DL (3.2-5.2); ALBUMIN/GLOBULIN RATIO 0.95 (1.00-1.93); ALKALINE PHOSPHATASE 179 U/L (45-117); ALT/SGPT 27 U/L (12-78); ANION GAP 8 MEQ/L (8-16); AST/SGOT 22 U/L (7-37); BILIRUBIN,TOTAL 0.2 MG/DL (0.2-1.0); BLOOD UREA NITROGEN 10 MG/DL (7-18); CALCIUM LEVEL 8.6 MG/DL (8.5-10.1); CARBON DIOXIDE LEVEL 28 MEQ/L (21-32); CHLORIDE LEVEL 108 MEQ/L (98-107); CREATININE FOR GFR 0.78 MG/DL (0.55-1.30); GLOMERULAR FILTRATION RATE > 60.0 (>51); GLUCOSE, FASTING 117 MG/DL (70-100); POTASSIUM SERUM 3.9 MEQ/L (3.5-5.1); SODIUM LEVEL 144 MEQ/L (136-145); TOTAL PROTEIN 7.2 GM/DL (6.4-8.2)
== END ==
LOC: M LAB 13:17
DX: Z01.818 Encounter for other preprocedural examination (principal); R94.31 Abnormal electrocardiogram [ECG] [EKG]
CPT/HCPCS: 71046

== ENCOUNTER 2018-06-19 09:55 | Day surgery (SDC) | payer OTHER ==
[~2018-06-19 09:55] MED LIST changes: +GLYCOPYRROLATE INJ 0.2 MG/ML 2 ML VIAL As Ordered; +LIDOCAINE 2% INJ 100 MG/5 ML SDV (FOR ANES.) As Ordered; -LR 1,000 ML IV; +MIDAZOLAM INJ 2 MG/2 ML VIAL (J2250) As Ordered; +NEOSTIGMINE 10 MG/10 ML VIAL (J2710) As Ordered; +ONDANSETRON 4MG/2ML VIAL (J2405) As Ordered; +PROPOFOL 200 MG/20 ML VIAL As Ordered; +dexameTHASONE 4 MG/ML 1ML VIAL (J1100) As Ordered; +fentaNYL 100 MCG/2 ML INJECTION (J3010) As Ordered
[2018-06-19] MEDS: LIDOCAINE 1% SDV INJ 30 ML VIAL As Ordered (10:17)
[2018-06-19] MEDS: LR 1,000 ML IV (11:15)
[2018-06-19] MEDS: methylPREDNISolone SUSP 40 MG/ML (DEPO-medrol) VIAL (J1030) As Ordered (13:29)
[2018-06-19] MEDS ORDERED: ONDANSETRON 4MG/2ML VIAL (J2405) As Ordered (14:24)
[2018-06-19] MEDS ORDERED: PERCOCET 5MG/325MG TAB As Ordered (14:24)
[2018-06-19] MEDS ORDERED: fentaNYL 100 MCG/2 ML INJECTION (J3010) As Ordered (14:24)
[2018-06-19] MEDS ORDERED: NORCO, ANEXSIA 5/325MG TABLET (HYDROcodone/ACETAMINOPHEN) PO (14:30)
[2018-06-19] MEDS ORDERED: LR 1,000 ML IV (14:30)
[2018-06-19] MEDS: PERCOCET 5MG/325MG TAB PO ×2 (14:30→15:03)
[2018-06-19] MEDS: fentaNYL 100 MCG/2 ML INJECTION (J3010) IV ×4 (14:33→15:10)
[2018-06-19] MEDS: ONDANSETRON 4MG/2ML VIAL (J2405) IV (14:34)
== END 2018-06-19 16:50 | disposition home or self-care (01) ==
LOC: M SDC 09:55
DX: G56.21 Lesion of ulnar nerve, right upper limb (principal); G56.01 Carpal tunnel syndrome, right upper limb; I10 Essential (primary) hypertension; E78.5 Hyperlipidemia, unspecified; F41.9 Anxiety disorder, unspecified; F32.9 Major depressive disorder, single episode, unspecified; R00.1 Bradycardia, unspecified; Z86.73 Personal history of transient ischemic attack (TIA), and cerebral infarction without residual deficits; J44.9 Chronic obstructive pulmonary disease, unspecified; F17.210 Nicotine dependence, cigarettes, uncomplicated; Z79.899 Other long term (current) drug therapy
CPT/HCPCS: 64718

== ENCOUNTER 2018-08-02 12:24 | Emergency (ER) | payer OTHER, MEDICAID ==
[2018-08-02 12:51] LABS: BASO # 0.1 10^3/uL (0.0-0.2); BASO % 0.7 % (0.0-1.0); EOS # 0.2 10^3/uL (0.0-0.50); EOS % 1.7 % (0.0-3.0); HEMATOCRIT 45.5 % (36.0-47.0); HEMOGLOBIN 15.9 g/dl (12.0-15.5); IMMATURE GRANULOCYTE % 0.3 % (0-3.0); LYMPH # 2.5 10^3/uL (1.5-4.5); LYMPH % 29.1 % (24.0-44.0); MEAN CORPUSCULAR HEMOGLOBIN 31.2 pg (27.0-33.0); MEAN CORPUSCULAR HGB CONC 34.9 g/dl (32.0-36.5); MEAN CORPUSCULAR VOLUME 89.4 fl (80.0-96.0); MONO # 0.7 10^3/uL (0.0-0.8); MONO % 7.5 % (0.0-5.0); NEUTROPHILS # 5.3 10^3/uL (1.8-7.7); NEUTROPHILS % 60.7 % (36.0-66.0); PLATELET COUNT, AUTOMATED 271 10^3/uL (150-450); RED BLOOD COUNT 5.09 10^6/uL (4.00-5.40); RED CELL DISTRIBUTION WIDTH 11.8 % (11.5-14.5); WHITE BLOOD COUNT 8.7 10^3/uL (4.0-10.0)
[2018-08-02 13:01] LABS: INR 0.95; PROTHROMBIN TIME 12.7 SECONDS (12.1-14.4)
[2018-08-02 13:09] LABS: ALBUMIN 3.9 GM/DL (3.2-5.2); ALBUMIN/GLOBULIN RATIO 0.91 (1.00-1.93); ALKALINE PHOSPHATASE 193 U/L (45-117); ALT/SGPT 27 U/L (12-78); ANION GAP 10 MEQ/L (8-16); AST/SGOT 18 U/L (7-37); BILIRUBIN,DIRECT < 0.1 MG/DL (0.0-0.2); BILIRUBIN,TOTAL 0.2 MG/DL (0.2-1.0); BLOOD UREA NITROGEN 7 MG/DL (7-18); CALCIUM LEVEL 9.4 MG/DL (8.5-10.1); CARBON DIOXIDE LEVEL 27 MEQ/L (21-32); CHLORIDE LEVEL 104 MEQ/L (98-107); CPK CREATINE PHOSPHOKINASE 34 U/L (26-192); GLOMERULAR FILTRATION RATE > 60.0 (>51); GLUCOSE, FASTING 98 MG/DL (70-100); LIPASE 140 U/L (73-393); POTASSIUM SERUM 3.2 MEQ/L (3.5-5.1); SODIUM LEVEL 141 MEQ/L (136-145); TOTAL PROTEIN 8.2 GM/DL (6.4-8.2); TROPONIN I < 0.02 NG/ML (< 0.10)
[2018-08-02 13:15] LABS: CK-MB VALUE MASS 1.1 NG/ML (<3.6); MB/CK RELATIVE INDEX 3.23 (< OR =4); NT-PRO BNP 288 PG/ML (<125)
[2018-08-02] MEDS ORDERED: ISOVUE-370 76% 100ML VIAL (Q9967) As Ordered (14:03)
[2018-08-02] MEDS: POTASSIUM CHLORIDE 10 MEQ SR TABLET PO (14:26)
[2018-08-02] MEDS: KETOROLAC 30 MG/ML VIAL (J1885) IV (14:26)
== END 2018-08-02 16:21 | disposition home or self-care (01) ==
LOC: M ED 12:24
DX: R07.9 Chest pain, unspecified (principal); M71.38 Other bursal cyst, other site; R94.31 Abnormal electrocardiogram [ECG] [EKG]; I10 Essential (primary) hypertension; J44.9 Chronic obstructive pulmonary disease, unspecified; J45.909 Unspecified asthma, uncomplicated; G25.81 Restless legs syndrome; F17.200 Nicotine dependence, unspecified, uncomplicated; Z86.73 Personal history of transient ischemic attack (TIA), and cerebral infarction without residual deficits; Z79.899 Other long term (current) drug therapy
CPT/HCPCS: Q9967

== ENCOUNTER 2018-08-03 08:34 | Emergency (ER) | payer OTHER, MEDICAID ==
[2018-08-03] MEDS: KETOROLAC 30 MG/ML VIAL (J1885) IV (09:15)
[2018-08-03] MEDS: PERCOCET 5MG/325MG TAB PO (09:15)
[2018-08-03 11:11] LABS: TROPONIN I < 0.02 NG/ML (< 0.10)
== END 2018-08-03 15:36 | disposition home or self-care (01) ==
LOC: M ED 08:34
DX: J98.59 Other diseases of mediastinum, not elsewhere classified (principal); I10 Essential (primary) hypertension; J44.9 Chronic obstructive pulmonary disease, unspecified; F33.9 Major depressive disorder, recurrent, unspecified; F41.9 Anxiety disorder, unspecified; G25.81 Restless legs syndrome; Z86.73 Personal history of transient ischemic attack (TIA), and cerebral infarction without residual deficits; Z79.899 Other long term (current) drug therapy; Z79.51 Long term (current) use of inhaled steroids; Z88.8 Allergy status to other drugs, medicaments and biological substances
CPT/HCPCS: J1885

== ENCOUNTER 2018-08-07 16:37 | Emergency (ER) | payer OTHER, MEDICAID | END 2018-08-07 18:18 | disposition home or self-care (01) | LOC: M ED 16:37 | DX: B02.9 Zoster without complications (principal); I10 Essential (primary) hypertension; F41.9 Anxiety disorder, unspecified; F32.9 Major depressive disorder, single episode, unspecified; Z87.440 Personal history of urinary (tract) infections; Z88.8 Allergy status to other drugs, medicaments and biological substances; Z79.899 Other long term (current) drug therapy | CPT/HCPCS: 99282 ==

== ENCOUNTER → 2018-09-27 | Outpatient (REF) | LOC: M SMT 14:51 | DX: Z02.71 Encounter for disability determination (principal) ==

== ENCOUNTER 2018-11-09 09:33 | Emergency (ER) | payer OTHER, MEDICAID ==
[2018-11-09 10:31] LABS: BEDSIDE GLUCOSE 110 MG/DL (70-105)
[2018-11-09 10:39] LABS: BASO % 0.4 % (0.0-1.0); EOS # 0.2 10^3/uL (0.0-0.50); EOS % 1.8 % (0.0-3.0); HEMATOCRIT 41.5 % (36.0-47.0); HEMOGLOBIN 14.2 g/dl (12.0-15.5); IMMATURE GRANULOCYTE % 0.3 % (0-3.0); LYMPH # 3.5 10^3/uL (1.5-4.5); LYMPH % 37.8 % (24.0-44.0); MEAN CORPUSCULAR HGB CONC 34.2 g/dl (32.0-36.5); MEAN CORPUSCULAR VOLUME 93.5 fl (80.0-96.0); MONO # 0.6 10^3/uL (0.0-0.8); NEUTROPHILS % 53.7 % (36.0-66.0); PLATELET COUNT, AUTOMATED 276 10^3/uL (150-450); RED BLOOD COUNT 4.44 10^6/uL (4.00-5.40); RED CELL DISTRIBUTION WIDTH 11.8 % (11.5-14.5); WHITE BLOOD COUNT 9.3 10^3/uL (4.0-10.0)
[2018-11-09] MEDS: METOCLOPRAMIDE INJ 10MG/2ML VIAL (J2765) IV (10:55)
[2018-11-09] MEDS: NS 1,000 ML IV ×2 (10:55→16:54)
[2018-11-09 11:14] LABS: ANION GAP 5 MEQ/L (8-16); BLOOD UREA NITROGEN 13 MG/DL (7-18); CALCIUM LEVEL 8.8 MG/DL (8.5-10.1); CARBON DIOXIDE LEVEL 31 MEQ/L (21-32); CHLORIDE LEVEL 103 MEQ/L (98-107); CPK CREATINE PHOSPHOKINASE 41 U/L (26-192); CREATININE FOR GFR 0.79 MG/DL (0.55-1.30); GLOMERULAR FILTRATION RATE > 60.0 (>51); GLUCOSE, FASTING 109 MG/DL (70-100); INR 0.94; MB/CK RELATIVE INDEX 2.93 (< OR =4); POTASSIUM SERUM 3.5 MEQ/L (3.5-5.1); PROTHROMBIN TIME 12.7 SECONDS (12.1-14.4); SODIUM LEVEL 139 MEQ/L (136-145); TROPONIN I < 0.02 NG/ML (< 0.10)
[2018-11-09] MEDS: ASPIRIN 325 MG TAB PO (12:15)
[2018-11-09] MEDS: ACETAMINOPHEN TAB 650MG DOSE (2X325MG) PO (12:15)
[2018-11-09 16:07] LABS: CPK CREATINE PHOSPHOKINASE 41 U/L (26-192); MB/CK RELATIVE INDEX 3.17 (< OR =4); TROPONIN I < 0.02 NG/ML (< 0.10)
== END 2018-11-09 17:05 | disposition home or self-care (01) ==
LOC: M ED 09:33
DX: R51 Headache (principal); I10 Essential (primary) hypertension; F41.9 Anxiety disorder, unspecified; F32.9 Major depressive disorder, single episode, unspecified; Z86.19 Personal history of other infectious and parasitic diseases; M51.9 Unspecified thoracic, thoracolumbar and lumbosacral intervertebral disc disorder; G25.81 Restless legs syndrome; L71.9 Rosacea, unspecified; M54.81 Occipital neuralgia; Z85.828 Personal history of other malignant neoplasm of skin; Z72.0 Tobacco use; Z79.899 Other long term (current) drug therapy; Z88.8 Allergy status to other drugs, medicaments and biological substances
CPT/HCPCS: J2765

== ENCOUNTER → 2018-12-21 | Outpatient (REF) | payer OTHER, MEDICAID ==
[~2018-12-21] MED LIST changes: +ALBU17IN INH; +ASPI1TAB PO; +BISO5TAB5 PO; +CEFT500T3 PO; +CIPR-250 PO; +CYCL10TA PO; +DITR1TAB PO; -GLYCOPYRROLATE INJ 0.2 MG/ML 2 ML VIAL As Ordered; +INCR1INH; +IPRA0.00 IN; -LIDOCAINE 2% INJ 100 MG/5 ML SDV (FOR ANES.) As Ordered; +LISI10TA4 PO; +MAGN250T7 PO; +MAGN400C2 PO; +MELO7.5T7 PO; -MIDAZOLAM INJ 2 MG/2 ML VIAL (J2250) As Ordered; +NAPR-885 PO; +NEBUMIS2 XX; -NEOSTIGMINE 10 MG/10 ML VIAL (J2710) As Ordered; -ONDANSETRON 4MG/2ML VIAL (J2405) As Ordered; +PARO40TA2; +PAXI30TA11 PO; +PERC5TAB12 PO; +POTA1TAB23; +PRAM0.5T7 PO; +PRED20TA PO; -PROPOFOL 200 MG/20 ML VIAL As Ordered; +ROBA750T4 PO; +TOPI50TA9; +TRAZ-160; +TRAZ25TA PO; +VALA1TAB2 PO; +VALI5TAB PO; +VARE05TA PO; +VENTAER; +VICO5TAB16 PO; +VITA50005 PO; +[UNRECOGNIZED DRUG - REMARK] PO; -dexameTHASONE 4 MG/ML 1ML VIAL (J1100) As Ordered; -fentaNYL 100 MCG/2 ML INJECTION (J3010) As Ordered; +flexeril PO
[2018-12-21 18:18] LABS: C REACTIVE PROTEIN QUANTITATIV 0.78 MG/DL (0.00-0.30); RHEUMATOID FACTOR QUANT < 10.0 IU/ML (<15.0); URIC ACID 3.7 MG/DL (2.6-6.0)
[2018-12-21 18:21] LABS: BASO # 0.1 10^3/uL (0.0-0.2); BASO % 0.7 % (0.0-1.0); EOS # 0.1 10^3/uL (0.0-0.50); EOS % 1.4 % (0.0-3.0); HEMATOCRIT 41.2 % (36.0-47.0); HEMOGLOBIN 13.9 g/dl (12.0-15.5); LYMPH # 3.1 10^3/uL (1.5-4.5); LYMPH % 33.6 % (24.0-44.0); MEAN CORPUSCULAR HEMOGLOBIN 31.2 pg (27.0-33.0); MEAN CORPUSCULAR HGB CONC 33.7 g/dl (32.0-36.5); MEAN CORPUSCULAR VOLUME 92.6 fl (80.0-96.0); MONO # 0.5 10^3/uL (0.0-0.8); MONO % 5.5 % (0.0-5.0); NEUTROPHILS # 5.4 10^3/uL (1.8-7.7); NEUTROPHILS % 58.5 % (36.0-66.0); PLATELET COUNT, AUTOMATED 317 10^3/uL (150-450); RED BLOOD COUNT 4.45 10^6/uL (4.00-5.40); WHITE BLOOD COUNT 9.2 10^3/uL (4.0-10.0)
[2018-12-21 19:03] LABS: ERYTHROCYTE SEDIMENTATION RATE 27 mm/hr (0-30)
[2018-12-23 15:32] LABS: ANTINUCLEAR ANTIBODIES DIRECT Negative (Negative); Lyme Disease IgG/IgM Antibodie <0.91 ISR (0.00-0.90); Lyme Disease IgM Ab Quantitati <0.80 index (0.00-0.79)
== END ==
LOC: M LABDRAW1 17:18
PROVIDERS: ATTEND Physician Assistant Surgical
DX: S83.241D Other tear of medial meniscus, current injury, right knee, subsequent encounter (principal); W18.30XA Fall on same level, unspecified, initial encounter; Y92.009 Unspecified place in unspecified non-institutional (private) residence as the place of occurrence of the external cause

== ENCOUNTER → 2019-01-11 | Outpatient (REF) | payer OTHER | LOC: M LABDRAW1 13:55 | PROVIDERS: ATTEND Physician Assistant Surgical | DX: M17.0 Bilateral primary osteoarthritis of knee (principal) ==

== ENCOUNTER → 2019-01-12 | Outpatient (CLI) | payer OTHER ==
--- NOTE | 2019-01-12 09:41 | REP ---
CT of the chest without IV contrast: Comparison is 08/02/2018. A paraspinal cyst was identified on the comparison study. The paraspinal cyst is again identified on the study today along the anterolateral margin of the C4/C5 vertebral bodies at the level of the aortic arch measuring 3.6 x 3.2 x 1.9 cm, unchanged in size. The margins are smooth. There are no destructive changes in the adjacent vertebra or ribs. 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 There are no lung masses or nodules. There is no mediastinal or axillary lymph node enlargement. The study is insensitive for hilar lymph node enlargement in the absence of IV contrast. The unenhanced thoracic aorta is unremarkable except for occasional calcified atheroma. Cardiac size is normal. There is no pericardial effusion. In the visualized upper abdomen. There are surgical clips in the gallbladder fossa. The visualized upper abdominal contents otherwise are unremarkable. Impression: No interval change. 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 Electronically Signed by Alex Lugo MD 01/12/2019 09:32 A
== END ==
LOC: M RAD 08:27
PROVIDERS: ATTEND Thoracic Surgery (Cardiothoracic Vascular Surgery)
DX: D15.2 Benign neoplasm of mediastinum (principal); R07.9 Chest pain, unspecified

== ENCOUNTER → 2019-02-23 | Outpatient (REF) | payer OTHER | LOC: M SFHCWAGY 13:35 | PROVIDERS: ATTEND Family Medicine | DX: Z12.4 Encounter for screening for malignant neoplasm of cervix (principal) ==

== ENCOUNTER → 2019-02-23 | Outpatient (CLI) | payer OTHER ==
--- NOTE | 2019-02-23 14:36 | REPMRS ---
Patient History The patient states she has not had a clinical breast exam in over a year. Patient is postmenopausal and has history of other cancer at age 42. Family history of breast cancer at age 49 in sister, colorectal cancer at age 50 or over in mother, breast cancer at age 57 in sister. 3D TOMOSYNTHESIS WAS PERFORMED. Digital Woman Screen Mammo: February 23, 2019 - Exam #: [id number] Bilateral CC and MLO view(s) were taken. Technologist: Alexsandra Rockwell, Technologist Prior study comparison: October 28, 2017, digital woman screen mammo performed at [facility]. May 21, 2016, digital woman screen mammo performed at [facility]. FINDINGS: There are scattered fibroglandular densities. There has been no change in the appearance of the mammogram from the prior studies. There is a mild amount of residual fibroglandular tissue which is fairly symmetric. There is no interval development of dominant mass, architectural distortion, or clustered microcalcification suggestive of malignancy. Assessment: BI-RADS/ACR category 1 mammogram. Negative Mammogram. Recommendation Routine screening mammogram in 1 year (for women over age 40). This mammogram was interpreted with the aid of an FDA-approved computer-aided dectection system. Electronically Signed By: Alex Hanks MD 02/23/19 [id number]
== END ==
LOC: M WHC 12:56
PROVIDERS: ATTEND Family Medicine
DX: Z12.31 Encounter for screening mammogram for malignant neoplasm of breast (principal); Z80.3 Family history of malignant neoplasm of breast

== ENCOUNTER → 2019-03-07 | Outpatient (CLI) | payer OTHER ==
[~2019-03-07] MED LIST changes: -ASPI1TAB PO; +ASPI81TA26 PO; -VICO5TAB16 PO; +VICO5TAB17 PO
[2019-03-07 13:40] LABS: FREE T4 0.98 NG/DL (0.76-1.46); THYROID STIMULATING HORMONE 1.55 uIU/ML (0.358-3.740)
== END ==
LOC: M LAB 12:09
PROVIDERS: ATTEND Internal Medicine Gastroenterology
DX: R19.7 Diarrhea, unspecified (principal)

== ENCOUNTER → 2019-03-14 | Outpatient (REF) | payer OTHER ==
[2019-03-14 12:33] LABS: HEMATOCRIT 41.6 % (36.0-47.0); HEMOGLOBIN 13.8 g/dl (12.0-15.5); MEAN CORPUSCULAR HEMOGLOBIN 30.7 pg (27.0-33.0); MEAN CORPUSCULAR HGB CONC 33.2 g/dl (32.0-36.5); MEAN CORPUSCULAR VOLUME 92.7 fl (80.0-96.0); PLATELET COUNT, AUTOMATED 290 10^3/uL (150-450); RED BLOOD COUNT 4.49 10^6/uL (4.00-5.40); WHITE BLOOD COUNT 9.6 10^3/uL (4.0-10.0)
[2019-03-14 12:59] LABS: HEMOGLOBIN A1c 5.6 %
[2019-03-14 13:08] LABS: ALBUMIN 3.6 GM/DL (3.2-5.2); ALT/SGPT 37 U/L (12-78); BILIRUBIN,TOTAL 0.2 MG/DL (0.2-1.0); BLOOD UREA NITROGEN 7 MG/DL (7-18); CALCIUM LEVEL 8.6 MG/DL (8.5-10.1); CARBON DIOXIDE LEVEL 29 MEQ/L (21-32); CHLORIDE LEVEL 109 MEQ/L (98-107); CHOLESTEROL LEVEL 217 MG/DL (<200); CHOLESTEROL RISK RATIO 4.931 (<5); CREATININE FOR GFR 0.72 MG/DL (0.55-1.30); GLOMERULAR FILTRATION RATE > 60.0 (>51); GLUCOSE, FASTING 90 MG/DL (70-100); HDL CHOLESTEROL 44 MG/DL (>40); LDL CHOLESTEROL 135 MG/DL (<100); MAGNESIUM LEVEL 1.8 MG/DL (1.8-2.4); NON-HDL-C 173 MG/DL; POTASSIUM SERUM 3.5 MEQ/L (3.5-5.1); SODIUM LEVEL 143 MEQ/L (136-145); TOTAL PROTEIN 7.1 GM/DL (6.4-8.2); TRIGLYCERIDES LEVEL 191 MG/DL (<150)
== END ==
LOC: M SFHCADAM 10:24
PROVIDERS: ATTEND Physician Assistant
DX: F17.210 Nicotine dependence, cigarettes, uncomplicated (principal); J44.9 Chronic obstructive pulmonary disease, unspecified; E78.00 Pure hypercholesterolemia, unspecified; G45.9 Transient cerebral ischemic attack, unspecified

== ENCOUNTER → 2019-03-16 | Outpatient (CLI) | payer OTHER ==
[~2019-03-16] MED LIST changes: +E-Z-PAQUE 96% w/w SUSP 176GM BTL As Ordered ONE
--- NOTE | 2019-03-16 16:33 | REP ---
Small bowel follow-through The procedure was performed under the direct supervision of Dr. Parson. The images were reviewed with Dr. Parson. The machine baster film shows no organomegaly or pathological masses. The intestinal gas pattern is nonspecific. Liquid barium was administered and the barium column was followed through the small bowel to the level of the terminal ileum. Small bowel transit time is approximately 120 minutes . During fluoroscopy gentle palpation shows all loops are freely movable and pliable. There are no fixed or angulated loops. The small bowel mucosal pattern is normal in course and caliber. There is no transition to suggest a partial small bowel obstruction. Spot filming of the terminal ileum shows it to be unremarkable. Impression: Small bowel follow-through examination within normal limits. 1.5 minutes of fluoro time was utilized for this procedure. Reviewed by JAJA Miller 03/16/2019 04:11 P Electronically Signed by Clemente Parson MD 03/16/2019 04:30 P
== END ==
LOC: M RAD 07:43
PROVIDERS: ATTEND Internal Medicine Gastroenterology
DX: R19.7 Diarrhea, unspecified (principal); R10.84 Generalized abdominal pain

== ENCOUNTER 2019-03-30 16:52 | Emergency (ER) | payer MEDICAID, OTHER ==
[~2019-03-30] VITALS: Ht 157.5 cm; Wt 88.7 kg
[~2019-03-30 16:52] MED LIST changes: +ASPI81TA85 PO; +ATOR40TA75 PO; -E-Z-PAQUE 96% w/w SUSP 176GM BTL As Ordered ONE; +PRAM1TAB7 PO; +RANI1SYP PO; +TRAM50TA2 PO; +VARE1TA PO; +VENTAER INH
[2019-03-30] MEDS ORDERED: TRAZ-160 PO (17:03)
[2019-03-30] MEDS ORDERED: ONDANSETRON 4MG/2ML VIAL (J2405) IV ONE (18:00)
[2019-03-30] MEDS ORDERED: NS 1,000 ML IV ONE (18:00)
[2019-03-30 18:14] LABS: BASO # 0.1 10^3/uL (0.0-0.2); BASO % 0.5 % (0.0-1.0); EOS # 0.2 10^3/uL (0.0-0.50); EOS % 1.4 % (0.0-3.0); HEMATOCRIT 41.2 % (36.0-47.0); HEMOGLOBIN 14.3 g/dl (12.0-15.5); LYMPH # 2.7 10^3/uL (1.5-4.5); LYMPH % 25.1 % (24.0-44.0); MEAN CORPUSCULAR HEMOGLOBIN 31.5 pg (27.0-33.0); MEAN CORPUSCULAR HGB CONC 34.7 g/dl (32.0-36.5); MEAN CORPUSCULAR VOLUME 90.7 fl (80.0-96.0); MONO # 0.6 10^3/uL (0.0-0.8); MONO % 5.5 % (0.0-5.0); NEUTROPHILS # 7.1 10^3/uL (1.8-7.7); PLATELET COUNT, AUTOMATED 273 10^3/uL (150-450); RED BLOOD COUNT 4.54 10^6/uL (4.00-5.40); WHITE BLOOD COUNT 10.6 10^3/uL (4.0-10.0)
[2019-03-30 18:31] LABS: ALBUMIN 3.8 GM/DL (3.2-5.2); ALT/SGPT 41 U/L (12-78); BILIRUBIN,DIRECT < 0.1 MG/DL (0.0-0.2); BILIRUBIN,TOTAL 0.4 MG/DL (0.2-1.0); BLOOD UREA NITROGEN 8 MG/DL (7-18); CALCIUM LEVEL 8.6 MG/DL (8.5-10.1); CARBON DIOXIDE LEVEL 30 MEQ/L (21-32); CHLORIDE LEVEL 103 MEQ/L (98-107); CREATININE FOR GFR 0.82 MG/DL (0.55-1.30); GLOMERULAR FILTRATION RATE > 60.0 (>51); GLUCOSE, FASTING 109 MG/DL (70-100); LIPASE 90 U/L (73-393); POTASSIUM SERUM 3.1 MEQ/L (3.5-5.1); SODIUM LEVEL 139 MEQ/L (136-145); TOTAL PROTEIN 7.8 GM/DL (6.4-8.2)
[2019-03-30 18:37] LABS: INFLUENZA A AMPLIFICATION NEGATIVE (NEGATIVE); INFLUENZA B AMPLIFICATION NEGATIVE (NEGATIVE)
[2019-03-30] MEDS ORDERED: ISOVUE-370 76% 100ML VIAL (Q9967) As Ordered ONE (18:38)
[2019-03-30] MEDS ORDERED: POTASSIUM CHLORIDE 10 MEQ SR TABLET PO ONE (18:45)
--- NOTE | 2019-03-30 19:27 | REPVR ---
EXAM: CT Abdomen and Pelvis With Contrast EXAM DATE/TIME: 03/30/2019 5:46 PM CLINICAL HISTORY: 53 years old, female; Pain and signs and symptoms; Vomiting; Abdominal pain; Generalized; Additional info: Pain/vomiting TECHNIQUE: Imaging protocol: Axial computed tomography images of the abdomen and pelvis with intravenous contrast. Coronal and sagittal reformatted images were created and reviewed. Radiation optimization: All CT scans at this facility use at least one of these dose optimization techniques: automated exposure control; mA and/or kV adjustment per patient size (includes targeted exams where dose is matched to clinical indication); or iterative reconstruction. Contrast material: ISOVUE 370; Contrast volume: 100 ml; Contrast route: IV; COMPARISON: CR Small Bowel Follow-Thru only 03/16/2019 8:04 AM FINDINGS: Lungs: Minimal linear atelectasis and/or scar within the lingula. ABDOMEN: Liver: Diffuse fatty infiltration of the liver. Gallbladder and bile ducts: Status post cholecystectomy. Pancreas: Unremarkable. No ductal dilation. Spleen: Unremarkable. No splenomegaly. Adrenals: Normal. No mass. Kidneys and ureters: Unremarkable. No stones. No hydronephrosis. Stomach and bowel: Fat density colonic wall thickening, likely secondary to obesity. These changes may be seen with chronic inflammatory bowel disease. No acute colitis or diverticulitis. The stomach and small bowel are unremarkable. Appendix: No evidence of appendicitis. PELVIS: Bladder: Mild wall thickening of the urinary bladder, likely secondary to underdistention. Reproductive: Unremarkable as visualized. ABDOMEN and PELVIS: Intraperitoneal space: Unremarkable. No free air. No significant fluid collection. Bones/joints: No acute fracture. Soft tissues: Unremarkable. Vasculature: Mild atherosclerosis of the abdominal aorta and iliac arteries. No aneurysm. Lymph nodes: Unremarkable. No enlarged lymph nodes. IMPRESSION: No acute abnormality. Electronically signed by: Gabino Hunter On 03/30/2019 19:27:21 PM
[2019-03-30] MEDS ORDERED: PIPERACILLIN/TAZOBACTAM SOD 3.375 GM in D5W MINI-BAG PLUS 50 ML IV ONE (19:45)
[2019-03-30 20:49] VITALS: BP 168/88
[2019-03-30] MEDS ORDERED: CIPR-249 PO (20:54)
[2019-03-30] MEDS ORDERED: ONDA4TAB6 PO (20:54)
== END 2019-03-30 21:40 | disposition home or self-care (01) ==
LOC: M ED 16:52
DX: N30.00 Acute cystitis without hematuria (principal); R19.7 Diarrhea, unspecified; R11.10 Vomiting, unspecified; I10 Essential (primary) hypertension; E78.5 Hyperlipidemia, unspecified; F41.9 Anxiety disorder, unspecified; F32.9 Major depressive disorder, single episode, unspecified; J45.909 Unspecified asthma, uncomplicated; J44.9 Chronic obstructive pulmonary disease, unspecified; Z87.19 Personal history of other diseases of the digestive system; F17.210 Nicotine dependence, cigarettes, uncomplicated; Z88.8 Allergy status to other drugs, medicaments and biological substances; Z79.899 Other long term (current) drug therapy; Z79.82 Long term (current) use of aspirin; Z79.51 Long term (current) use of inhaled steroids
CPT/HCPCS: 74177; 80048; 80076; 81001; 83690; 85025; 87088; 87186; 87502; 96374; 99284; J2405; Q9967

== ENCOUNTER 2019-04-02 19:31 | Emergency (ER) | payer OTHER ==
[~2019-04-02] VITALS: Ht 157.5 cm; Wt 86.4 kg
[~2019-04-02 19:31] MED LIST changes: +CIPR-249 PO; +ONDA4TAB6 PO; +TRAZ-160 PO
[2019-04-02] MEDS ORDERED: cloNIDine 0.1 MG TAB PO ONE (21:00)
[2019-04-02] MEDS ORDERED: methylPREDNISolone INJ 125 MG/2 ML VIAL (J2930) IM ONE (21:00)
[2019-04-02] MEDS ORDERED: KETOROLAC 60 MG/2 ML VIAL (J1885) IM ONE (21:00)
[2019-04-02] MEDS ORDERED: methylPREDNISolone INJ 125 MG/2 ML VIAL (J2930) IV ONE (21:15)
[2019-04-02] MEDS ORDERED: KETOROLAC 30 MG/ML VIAL (J1885) IV ONE (21:15)
[2019-04-02] MEDS ORDERED: ONDANSETRON 4MG/2ML VIAL (J2405) As Ordered ONE (21:16)
[2019-04-02] MEDS ORDERED: ONDANSETRON 4MG/2ML VIAL (J2405) IV ONE (21:30)
--- NOTE | 2019-04-02 21:34 | REPVR ---
EXAM: CT Head Without Contrast EXAM DATE/TIME: 04/02/2019 8:24 PM CLINICAL HISTORY: 53 years old, female; Pain; Headache; Additional info: DRUMMOND TECHNIQUE: Imaging protocol: Axial computed tomography images of the head/brain without contrast. Radiation optimization: All CT scans at this facility use at least one of these dose optimization techniques: automated exposure control; mA and/or kV adjustment per patient size (includes targeted exams where dose is matched to clinical indication); or iterative reconstruction. COMPARISON: CT Head without contrast 11/09/2018 9:47 AM FINDINGS: Brain: There is a small old lacunar infarct right basal ganglia and new since 2018 exam. There are small patchy areas of low density in the periventricular white matter consistent with chronic ischemic change also seen on the previous exam. Ventricles: Normal. No ventriculomegaly. Bones/joints: Unremarkable. No acute fracture. Sinuses: Visualized sinuses are unremarkable. No acute sinusitis. Mastoid air cells: Visualized mastoid air cells are unremarkable. No mastoid effusion. Soft tissues: Unremarkable. IMPRESSION: No evidence of acute bleed. Chronic ischemic changes. Electronically signed by: Amish Landry On 04/02/2019 21:34:07 PM
[2019-04-02] MEDS ORDERED: traMADol 50 MG TAB PO ONE (22:30)
[2019-04-02] MEDS ORDERED: cloNIDine 0.2 MG TAB PO ONE (23:00)
[2019-04-02 23:09] VITALS: BP 197/89
[2019-04-02] MEDS ORDERED: PRED20TA PO (23:42)
[2019-04-03] VITALS: BP 179/85
== END 2019-04-03 00:13 | disposition home or self-care (01) ==
LOC: M ED 19:31 → EDBD 19:31 → M ED 04-03 00:13
DX: I10 Essential (primary) hypertension (principal); R51 Headache; K73.9 Chronic hepatitis, unspecified; I67.1 Cerebral aneurysm, nonruptured; K21.9 Gastro-esophageal reflux disease without esophagitis; F32.9 Major depressive disorder, single episode, unspecified; M54.2 Cervicalgia; F17.200 Nicotine dependence, unspecified, uncomplicated; Z88.8 Allergy status to other drugs, medicaments and biological substances; Z79.899 Other long term (current) drug therapy; Z79.2 Long term (current) use of antibiotics; Z79.51 Long term (current) use of inhaled steroids; Z79.891 Long term (current) use of opiate analgesic; Z79.82 Long term (current) use of aspirin
CPT/HCPCS: 70450; 85652; 96374; 96375; 99284; J1885; J2405; J2930

== ENCOUNTER 2019-05-17 09:11 | Day surgery (SDC) | payer OTHER ==
[~2019-05-17] VITALS: Ht 157.5 cm; Wt 87.0 kg
[~2019-05-17 09:11] MED LIST changes: +NS 1,000 ML IV ONE; -TRAZ-160; -TRAZ-160 PO; +TRAZ-252; +TRAZ-252 PO; +TRAZ1TAB11 PO; -TRAZ25TA PO
--- NOTE | 2019-05-17 11:03 | ROOR ---
Patient Name: Alexsandra Farrell Procedure Date: 05/17/2019 10:50 AM Date of : 1965 Age: 53 Room: [facility] Gender: Female Note Status: Finalized Procedure: Upper GI endoscopy Indications: Heartburn Providers: Bobo PUTNAM MD Referring MD: STEPHEN Ramsey Requesting Provider: Medicines: Monitored Anesthesia Care Complications: No immediate complications. Procedure: Pre-Anesthesia Assessment: - The heart rate, respiratory rate, oxygen saturations, blood pressure, adequacy of pulmonary ventilation, and response to care were monitored throughout the procedure. The Endoscope was introduced through the mouth, and advanced to the second part of duodenum. The upper GI endoscopy was accomplished without difficulty. The patient tolerated the procedure well. Findings: The esophagus was normal. The stomach was normal. The examined duodenum was normal. Impression: - Normal esophagus. - Normal stomach. - Normal examined duodenum. - No specimens collected. Recommendation: - Continue present medications. - Follow an antireflux regimen. Bobo uPtnam MD Bobo PUTNAM MD 05/17/2019 11:03:25 AM Electronically signed by Bobo PUTNAM MD Number of Addenda: 0 Note Initiated On: 05/17/2019 10:50 AM Estimated Blood Loss: Estimated blood loss: none.
[2019-05-17] MEDS ORDERED: LIDOCAINE 2% INJ 100 MG/5 ML SDV (FOR ANES.) As Ordered ONE (11:08)
[2019-05-17] MEDS ORDERED: PROPOFOL 500 MG/50 ML VIAL As Ordered ONE (11:08)
[2019-05-17] MEDS ORDERED: fentaNYL 100 MCG/2 ML INJECTION (J3010) As Ordered ONE (11:08)
--- NOTE | 2019-05-17 11:26 | ROOR ---
Patient Name: Alexsandra Farrell Procedure Date: 05/17/2019 10:51 AM Date of : 1965 Age: 53 Room: [facility] Gender: Female Note Status: Finalized Procedure: Colonoscopy Indications: Clinically significant diarrhea of unexplained origin Providers: Bobo PUTNAM MD Referring MD: STEPHEN Ramsey Requesting Provider: Medicines: Monitored Anesthesia Care Complications: No immediate complications. Procedure: Pre-Anesthesia Assessment: - The heart rate, respiratory rate, oxygen saturations, blood pressure, adequacy of pulmonary ventilation, and response to care were monitored throughout the procedure. The Colonoscope was introduced through the anus and advanced to 10 cm into the ileum. The colonoscopy was performed without difficulty. The patient tolerated the procedure well. The quality of the bowel preparation was good. Findings: The perianal and digital rectal examinations were normal. Three sessile polyps were found in the rectum, sigmoid colon and hepatic flexure. The polyps were 3 to 5 mm in size. These polyps were removed with a cold snare. Resection and retrieval were complete. Internal hemorrhoids were found during retroflexion. The hemorrhoids were medium-sized. The exam was otherwise without abnormality on direct and retroflexion views. Biopsies for histology were taken with a cold forceps for evaluation of microscopic colitis. The terminal ileum appeared normal. Impression: - The terminal ileum was normal. - Three 3 to 5 mm polyps in the rectum, in the sigmoid colon and at the hepatic flexure, removed with a cold snare. Resected and retrieved. - Internal hemorrhoids. - The colon examination was otherwise normal on direct and retroflexion views. - Biopsies were taken with a cold forceps for evaluation of microscopic colitis. - (Irritable Bowel Syndrome/IBS suspected.) Recommendation: - Recommend antispasmodic medication PRN. (bentyl sent to your pharamcy) - Use fiber, for example Citrucel, Fibercon, Konsyl or Metamucil. - Telephone endoscopist for pathology results in 2 weeks. Bobo Putnam MD Bobo PUTNAM MD 05/17/2019 11:26:03 AM Electronically signed by Bobo PUTNAM MD Number of Addenda: 0 Note Initiated On: 05/17/2019 10:51 AM Estimated Blood Loss: Estimated blood loss: none.
[2019-05-17 11:47] VITALS: BP 120/58
== END 2019-05-17 11:48 | disposition home or self-care (01) ==
LOC: M OPP 09:11
PROVIDERS: ATTEND Internal Medicine Gastroenterology
DX: K62.1 Rectal polyp (principal); K63.5 Polyp of colon; K64.8 Other hemorrhoids; R19.7 Diarrhea, unspecified; R12 Heartburn; Z79.2 Long term (current) use of antibiotics; Z79.899 Other long term (current) drug therapy; Z88.8 Allergy status to other drugs, medicaments and biological substances
CPT/HCPCS: 43235; 45380; 45385; 88305; J3010

== ENCOUNTER 2019-07-01 17:28 | Emergency (ER) | payer MEDICAID, OTHER ==
[~2019-07-01] VITALS: Ht 157.5 cm; Wt 87.5 kg
[~2019-07-01 17:28] MED LIST changes: -NS 1,000 ML IV ONE
[2019-07-01] MEDS ORDERED: NS 1,000 ML IV ONE (18:15)
[2019-07-01] MEDS ORDERED: KETOROLAC 30 MG/ML VIAL (J1885) IV ONE (18:15)
[2019-07-01 18:38] LABS: BASO # 0.1 10^3/uL (0.0-0.2); BASO % 0.5 % (0.0-1.0); EOS # 0.2 10^3/uL (0.0-0.50); EOS % 1.7 % (0.0-3.0); HEMATOCRIT 39.7 % (36.0-47.0); LYMPH # 2.6 10^3/uL (1.5-4.5); LYMPH % 25.3 % (24.0-44.0); MEAN CORPUSCULAR HEMOGLOBIN 31.5 pg (27.0-33.0); MEAN CORPUSCULAR HGB CONC 35.3 g/dl (32.0-36.5); MEAN CORPUSCULAR VOLUME 89.2 fl (80.0-96.0); MONO # 0.5 10^3/uL (0.0-0.8); MONO % 5.1 % (0.0-5.0); PLATELET COUNT, AUTOMATED 249 10^3/uL (150-450); RED BLOOD COUNT 4.45 10^6/uL (4.00-5.40); WHITE BLOOD COUNT 10.4 10^3/uL (4.0-10.0)
[2019-07-01 19:03] LABS: ALBUMIN 3.5 GM/DL (3.2-5.2); ALT/SGPT 25 U/L (12-78); BILIRUBIN,DIRECT < 0.1 MG/DL (0.0-0.2); BILIRUBIN,TOTAL 0.3 MG/DL (0.2-1.0); LIPASE 115 U/L (73-393); TOTAL PROTEIN 7.1 GM/DL (6.4-8.2)
--- NOTE | 2019-07-01 20:49 | REPVR ---
EXAM: CT Abdomen and Pelvis Without Contrast EXAM DATE/TIME: 07/01/2019 6:57 PM CLINICAL HISTORY: 53 years old, female; Abdominal pain; Flank; Left; Additional info: Left flank pain; R/O stone TECHNIQUE: Imaging protocol: Axial computed tomography images of the abdomen and pelvis without contrast. Coronal and sagittal reformatted images were created and reviewed. Radiation optimization: All CT scans at this facility use at least one of these dose optimization techniques: automated exposure control; mA and/or kV adjustment per patient size (includes targeted exams where dose is matched to clinical indication); or iterative reconstruction. COMPARISON: CT ABD/PEL W/IV CONTRAST ONLY 03/30/2019 6:35 PM FINDINGS: Liver: Normal. No mass. Gallbladder and bile ducts: Status post cholecystectomy. Pancreas: Normal. No ductal dilation. Spleen: Normal. No splenomegaly. Adrenals: Normal. No mass. Kidneys and ureters: Minimal left hydronephrosis and hydroureter with periureteral edema which extends to the left UVJ with no ureteral, UVJ or bladder calculus seen. Stomach and bowel: Normal. No obstruction. No mucosal thickening. Appendix: There are no changes of appendicitis. A normal appendix is not seen. Intraperitoneal space: Normal. No free air. No significant fluid collection. Vasculature: There is mild calcification of the abdominal aorta with extension into the iliac arteries. Lymph nodes: Normal. No enlarged lymph nodes. Bladder: The urinary bladder is decompressed but appears grossly normal. Reproductive: Unremarkable as visualized. Bones/joints: No acute fracture. No dislocation. Soft tissues: Unremarkable. IMPRESSION: 1. Minimal left obstructive uropathy to the left UVJ with no calculus seen. Findings may reflect a recently passed stone or possibly pyelonephritis. 2. Status post cholecystectomy. 3. Otherwise negative CT abdomen/pelvis. Electronically signed by: Eddy Alejo On 07/01/2019 20:49:12 PM
[2019-07-01] MEDS ORDERED: KEFL500C17 PO (21:11)
[2019-07-01] MEDS ORDERED: KETO10TAB PO (21:11)
[2019-07-01 21:23] VITALS: BP 163/74
== END 2019-07-01 21:26 | disposition home or self-care (01) ==
LOC: M ED 17:28
DX: N13.30 Unspecified hydronephrosis (principal); N39.0 Urinary tract infection, site not specified; I10 Essential (primary) hypertension; E78.5 Hyperlipidemia, unspecified; F33.9 Major depressive disorder, recurrent, unspecified; F41.9 Anxiety disorder, unspecified; Z79.899 Other long term (current) drug therapy; Z79.82 Long term (current) use of aspirin; Z88.8 Allergy status to other drugs, medicaments and biological substances; F17.210 Nicotine dependence, cigarettes, uncomplicated
CPT/HCPCS: 74176; 80047; 80076; 81001; 83690; 85025; 87086; 96361; 96374; 99284; J1885

== ENCOUNTER → 2019-07-16 | Outpatient (REF) | payer OTHER, MEDICAID ==
[~2019-07-16] MED LIST changes: +KEFL500C17 PO; +KETO10TAB PO
[2019-07-16 14:08] LABS: AMORPHOUS SEDIMENT SMALL (NEGATIVE); APPEARANCE, URINE CLOUDY (CLEAR); BACTERIA, URINE AUTO 1+ (NEGATIVE); BILIRUBIN, URINE AUTO NEGATIVE (NEGATIVE); BLOOD, URINE BLOOD 1+ (NEGATIVE); COLOR, URINE AMBER (YELLOW); GLUCOSE, URINE (UA) AUTO NEGATIVE (NEGATIVE); KETONE, URINE AUTO NEGATIVE (NEGATIVE); LEUKOCYTE ESTERASE, URINE AUTO 2+ (NEGATIVE); MUCUS, URINE SMALL (NEGATIVE); NITRITE, URINE AUTO NEGATIVE (NEGATIVE); PROTEIN, URINE AUTO 1+ mg/dL (NEGATIVE); RBC, URINE AUTO 6 /HPF (0-3); SPECIFIC GRAVITY URINE AUTO 1.018 (1.002-1.035); SQUAMOUS EPITHELIAL CELL UR AU 12 /HPF (0-6); UROBILINOGEN, URINE AUTO 0.2 mg/dL (0.0-2.0); WBC, URINE AUTO 101 /HPF (0-3)
== END ==
LOC: M SMT 13:11
PROVIDERS: ATTEND Urology
DX: N13.30 Unspecified hydronephrosis (principal)

== ENCOUNTER → 2019-07-19 | Outpatient (CLI) | payer OTHER ==
--- NOTE | 2019-07-19 14:07 | REP ---
RENAL ULTRASOUND: REASON FOR EXAM: History of renal calculi with hydronephrosis. FINDINGS: Multiple ultrasonographic images of the right kidney show the right kidney to measure 10.7 x 4.4 x 4.4 cm. The renal cortical echotexture is unremarkable. There are no masses. There is good corticomedullary differentiation. There is no hydronephrosis. There are no perinephric fluid collections. Multiple ultrasonographic images of the left kidney show the left kidney to measure 10.9 x 4.7 x 3.8 cm. The renal cortical echotexture is unremarkable. There are no masses. There is good corticomedullary differentiation. There is no hydronephrosis. There are no perinephric fluid collections. Limited evaluation of the urinary bladder was obtained to assess for urojet phenomenon, which was identified bilaterally. No gross abnormalities were noted. IMPRESSION: Unremarkable renal ultrasonography. Electronically Signed by Giovanny Guzman DO 07/19/2019 03:06 P
== END ==
LOC: M RAD 12:35
PROVIDERS: ATTEND Urology
DX: N13.30 Unspecified hydronephrosis (principal)

== ENCOUNTER → 2019-07-24 | Outpatient (CLI) | payer OTHER ==
--- NOTE | 2019-07-25 12:03 | REP ---
Clinical: Mediastinal mass. Technique: Axial noncontrast images from the thoracic inlet to the upper abdomen with coronal and sagittal re-formations. Comparison: 01/12/2019, 08/02/2018. Findings: Cystic left paraspinal mass just above the level of the aortic arch measuring 3.6 x 3.0 x 1.7 cm remains relatively stable and likely represents benign bronchogenic or duplication cyst. No further abnormal cystic or mass lesion appreciated within the mediastinum or bilateral lung perez. Pulmonary parenchyma appears normal bilaterally. No consolidation, pulmonary nodule or mass lesion. No effusion. No pneumothorax. Tracheobronchial tree is patent. No obvious adenopathy. Mild stable atherosclerotic changes to the thoracic aorta and coronary arteries noted without aortic aneurysm or cardiomegaly. No pericardial effusion. Limited upper abdomen demonstrates normal bilateral adrenal glands and evidence of prior cholecystectomy. Osseous structures are intact. Impression: 1. 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 2. No further acute mediastinal or pleuroparenchymal process. Electronically Signed by Ramsey Marquez MD 07/25/2019 06:26 A
== END ==
LOC: M RAD 07:47
PROVIDERS: ATTEND Thoracic Surgery (Cardiothoracic Vascular Surgery)
DX: D15.2 Benign neoplasm of mediastinum (principal)

== ENCOUNTER → 2019-08-15 | Outpatient (REF) | payer OTHER, MEDICAID ==
[~2019-08-15] MED LIST changes: -BISO5TAB5 PO; +BISO5TAB9 PO; +TOPI100T9
[2019-08-15 13:35] LABS: APPEARANCE, URINE CLEAR (CLEAR); BACTERIA, URINE AUTO 1+ (NEGATIVE); BILIRUBIN, URINE AUTO NEGATIVE (NEGATIVE); BLOOD, URINE BLOOD NEGATIVE (NEGATIVE); COLOR, URINE YELLOW (YELLOW); GLUCOSE, URINE (UA) AUTO NEGATIVE (NEGATIVE); KETONE, URINE AUTO NEGATIVE (NEGATIVE); LEUKOCYTE ESTERASE, URINE AUTO NEGATIVE (NEGATIVE); MUCUS, URINE SMALL (NEGATIVE); NITRITE, URINE AUTO NEGATIVE (NEGATIVE); PROTEIN, URINE AUTO NEGATIVE (NEGATIVE); RBC, URINE AUTO 0 /HPF (0-3); SPECIFIC GRAVITY URINE AUTO 1.006 (1.002-1.035); SQUAMOUS EPITHELIAL CELL UR AU 1 /HPF (0-6); UROBILINOGEN, URINE AUTO 0.2 mg/dL (0.0-2.0); WBC, URINE AUTO 1 /HPF (0-3)
== END ==
LOC: M SMT 12:55
PROVIDERS: ATTEND Nurse Practitioner Women's Health
DX: N39.0 Urinary tract infection, site not specified (principal)

== ENCOUNTER 2019-08-27 10:25 | Emergency (ER) | payer MEDICAID, OTHER ==
[~2019-08-27] VITALS: Ht 157.5 cm; Wt 86.7 kg
[~2019-08-27 10:25] MED LIST changes: -TOPI100T9
[2019-08-27] MEDS ORDERED: TOPI100T9 (11:05)
[2019-08-27 11:33] LABS: BASO # 0.1 10^3/uL (0.0-0.2); BASO % 0.6 % (0.0-1.0); EOS # 0.1 10^3/uL (0.0-0.5); EOS % 1.2 % (0.0-3.0); LYMPH # 1.9 10^3/uL (1.5-5.0); LYMPH % 19.3 % (24.0-44.0); MEAN CORPUSCULAR HEMOGLOBIN 31.1 pg (27.0-33.0); MEAN CORPUSCULAR HGB CONC 34.1 g/dl (32.0-36.5); MEAN CORPUSCULAR VOLUME 91.1 fl (80.0-96.0); MONO # 0.5 10^3/uL (0.0-0.8); MONO % 4.8 % (0.0-5.0); NEUTROPHILS # 7.3 10^3/uL (1.5-8.5); NEUTROPHILS % 73.8 % (36.0-66.0); PLATELET COUNT, AUTOMATED 304 10^3/uL (150-450); RED BLOOD COUNT 4.83 10^6/uL (4.00-5.40); WHITE BLOOD COUNT 9.9 10^3/uL (4.0-10.0)
[2019-08-27 11:56] LABS: BLOOD UREA NITROGEN 12 MG/DL (7-18); CALCIUM LEVEL 9.2 MG/DL (8.5-10.1); CARBON DIOXIDE LEVEL 29 MEQ/L (21-32); CHLORIDE LEVEL 102 MEQ/L (98-107); GLOMERULAR FILTRATION RATE > 60.0 (>51); GLUCOSE, FASTING 112 MG/DL (70-100); POTASSIUM SERUM 3.2 MEQ/L (3.5-5.1); SODIUM LEVEL 139 MEQ/L (136-145)
[2019-08-27] MEDS ORDERED: diphenhydrAMINE INJ 50MG/ML VIAL (J1200) IV ONE (12:00)
[2019-08-27] MEDS ORDERED: NS 1,000 ML IV ONE (12:00)
[2019-08-27] MEDS ORDERED: METOCLOPRAMIDE INJ 10MG/2ML VIAL (J2765) IV ONE (12:00)
[2019-08-27 12:22] LABS: ERYTHROCYTE SEDIMENTATION RATE 34 mm/hr (0-30)
--- NOTE | 2019-08-27 13:05 | REP ---
CT brain without contrast: History: Headache, [address] study April 02, 2019. CT findings: Digital preliminary sugar controller radiograph is unremarkable. The patient is edentulous. Bone window settings demonstrate an intact bony calvarium. There is mild vascular calcification in the distal carotid arteries bilaterally. Visualized paranasal sinuses are clear. No intraorbital abnormality is appreciated. On soft tissue window settings, there is an old lacunar infarct in the right basal ganglia at the genu of the internal capsule. This is unchanged. There is no evidence of intracranial hemorrhage. No acute infarction is appreciated. There are minimal soft small vessel changes in the periventricular and subcortical white matter. This is unchanged as well. No extra-axial fluid collection, mass, or midline shift is seen. Impression: Old lacunar infarct right basal ganglia and small vessel changes and vascular calcification again noted. No acute intracranial abnormality seen. Electronically Signed by Clemente Parson MD 08/27/2019 02:22 P
[2019-08-27] MEDS ORDERED: ASPIRIN 325 MG TAB PO ONE (13:30)
[2019-08-27] MEDS ORDERED: LISINOPRIL 10 MG TAB PO ONE (13:30)
[2019-08-27 14:20] VITALS: BP 175/91
== END 2019-08-27 14:29 | disposition home or self-care (01) ==
LOC: M ED 10:25
DX: G43.909 Migraine, unspecified, not intractable, without status migrainosus (principal); F17.200 Nicotine dependence, unspecified, uncomplicated; I16.0 Hypertensive urgency; I67.9 Cerebrovascular disease, unspecified; Z88.8 Allergy status to other drugs, medicaments and biological substances; Z79.899 Other long term (current) drug therapy; Z79.2 Long term (current) use of antibiotics; Z79.51 Long term (current) use of inhaled steroids; Z79.891 Long term (current) use of opiate analgesic; Z79.82 Long term (current) use of aspirin
CPT/HCPCS: 70450; 80048; 85025; 85652; 96374; 96375; 99284; J1200; J2765